=== PATIENT | male | born 1945 | race Caucasian/White ===

== ENCOUNTER 2019-03-16 07:33 | Inpatient (IN) | payer OTHER ==
[2019-03-16 08:07] LABS: BASO % 0.4 % (0-2.0); EOS % 2.1 % (0-4.5); HEMATOCRIT 29.9 % (35.4-49); HEMOGLOBIN 9.8 GM/dL (11.7-16.9); LYMPH % 28.1 % (8-40); MCH 30.4 pg (25.7-33.7); MCHC 32.8 g/dl (32.0-35.9); MEAN CELL VOLUME 92.8 fl (80-96); MEAN PLT VOLUME 7.3 fl (7.5-11.1); MONO % 7.8 % (3.8-10.2); NEUT % 61.6 % (42.8-82.8); PLATELET COUNT 164 K/MM3 (134-434); RBC 3.22 M/mm3 (4.00-5.60); WHITE BLOOD COUNT 6.1 K/mm3 (4.0-10.0)
[2019-03-16 08:24] LABS: INR 1.03 (0.83-1.09); PROTHROMBIN TIME (PATIENT) 12.2 SEC (9.7-13.0)
[2019-03-16 09:01] LABS: ALBUMIN 3.3 g/dl (3.4-5.0); BILIRUBIN,TOTAL 0.2 mg/dL (0.2-1); BLOOD UREA NITROGEN 46.6 mg/dL (7-18); CALCIUM 8.2 mg/dL (8.5-10.1); CREATININE 1.8 mg/dL (0.55-1.3); POTASSIUM 4.6 mmol/L (3.5-5.1); TOT PROT 6.4 g/dl (6.4-8.2)
[2019-03-16] MEDS ORDERED: DEXMEDETOMIDINE HCL 200 MCG/2 ML IVPB ONE (10:58)
[2019-03-16] MEDS ORDERED: ONDANSETRON 4 MG/2 ML VIAL IVPUSH PRN (13:04)
[2019-03-16] MEDS ORDERED: LACTATED RINGERS SOLUTION 1,000 ML IV SCH (13:15)
[2019-03-16] MEDS ORDERED: ACETAMINOPHEN INJECTION 100 ML IVPB ONE (14:28)
[2019-03-16] MEDS: ACETAMINOPHEN 1000 MG/100 ML VIAL (NON FORMULARY) IVPB ONE (14:43)
[2019-03-16] MEDS ORDERED: HYDROmorphone HCl 2 MG/ML VIAL ONE (14:52)
[2019-03-16] MEDS ORDERED: HYDROmorphone HCl 2 MG/ML VIAL IVPUSH ONE (14:54)
[2019-03-16] MEDS ORDERED: HYDROmorphone *PCA* 10MG/50ML DISP.SYRIN ONE (15:52)
[2019-03-16 15:58] LABS: BASO % 0.2 % (0-2.0); EOS % 1.2 % (0-4.5); HEMATOCRIT 28.1 % (35.4-49); HEMOGLOBIN 9.2 GM/dL (11.7-16.9); LYMPH % 32.6 % (8-40); MCH 30.7 pg (25.7-33.7); MCHC 32.6 g/dl (32.0-35.9); MEAN PLT VOLUME 7.5 fl (7.5-11.1); MONO % 5.9 % (3.8-10.2); NEUT % 60.1 % (42.8-82.8); PLATELET COUNT 174 K/MM3 (134-434); RBC 2.99 M/mm3 (4.00-5.60); RDW 15.7 % (11.9-15.9); WHITE BLOOD COUNT 8.6 K/mm3 (4.0-10.0)
[2019-03-16] MEDS ORDERED: HYDROmorphone *PCA* 10MG/50ML DISP.SYRIN PCA SCH (16:15)
--- NOTE | 2019-03-16 16:31 | CONSULT ---
Consultation: REQUESTING PROVIDER: CONSULT REQUEST: We have been asked to medically evaluate this patient for ICU care. HISTORY OF PRESENT ILLNESS: Patient is a 73M with history of s/p pacemaker, on Xarelto, CAD, prostate Ca, b/ l kidney mass, HTN s/p cryoablation of kidney tumors today. Patient had retroperitoneal bleeding demonstrated on CT scan. No reports of hypotension or tachycardia. Patient seen and evaluated in PACU. Patient complaining of pain to his back, no shortness of breath, chest pain or weakness. PACU nursing reports no episodes of hypotension or tachycardia. History is limited as patient is poor historian 2/2 medication. After initial evaluation, patient had repeated episodes of hypotension in PACU after receiving fentanyl and dilaudid. Repeat CBC taken. REVIEW OF SYSTEMS: CONSTITUTIONAL: Absent: fever, chills, diaphoresis, generalized weakness CARDIOVASCULAR: Absent: chest pain, syncope, palpitations RESPIRATORY: Absent: cough, shortness of breath, dyspnea GASTROINTESTINAL: Absent: abdominal pain, abdominal distension, nausea, vomiting, diarrhea GENITOURINARY: Absent: dysuria, frequency, urgency MUSCULOSKELETAL: Absent: myalgia, arthralgia, joint swelling, neck pain Present: chronic lower back pain SKIN: Absent: rash, itching, pallor NEUROLOGIC: Absent: headache, focal weakness or paresthesias, dizziness, seizure, bladder or bowel incontinence PHYSICAL EXAMINATION Vital Signs - 24 hr 03/16/19 03/16/19 03/16/19 07:54 07:56 10:43 Temperature 98.3 F Pulse Rate 53 L 52 L Pulse Rate [ Left Upper Arm] Respiratory 18 11 Rate Respiratory Rate [Left Upper Arm] Blood Pressure 165/71 175/62 H Blood Pressure [Left Upper Arm ] O2 Sat by Pulse 94 L 100 Oximetry (%) O2 Sat by Pulse Oximetry (%) [ Left Upper Arm] 03/16/19 03/16/19 03/16/19 11:01 11:59 12:40 Temperature 97.5 F L Pulse Rate 50 L 50 L Pulse Rate [ 50 L Left Upper Arm] Respiratory 11 14 Rate Respiratory 10 Rate [Left Upper Arm] Blood Pressure 131/66 120/53 L Blood Pressure 141/69 [Left Upper Arm ] O2 Sat by Pulse 100 96 Oximetry (%) O2 Sat by Pulse 100 Oximetry (%) [ Left Upper Arm] 03/16/19 03/16/19 03/16/19 12:55 13:10 13:25 Temperature Pulse Rate 50 L 50 L 50 L Pulse Rate [ Left Upper Arm] Respiratory 18 18 18 Rate Respiratory Rate [Left Upper Arm] Blood Pressure 119/47 L 92/56 L 132/64 Blood Pressure [Left Upper Arm ] O2 Sat by Pulse 96 95 95 Oximetry (%) O2 Sat by Pulse Oximetry (%) [ Left Upper Arm] 03/16/19 03/16/19 03/16/19 13:40 13:55 16:10 Temperature Pulse Rate 50 L 50 L 50 L Pulse Rate [ Left Upper Arm] Respiratory 18 18 16 Rate Respiratory Rate [Left Upper Arm] Blood Pressure 120/66 133/60 154/49 L Blood Pressure [Left Upper Arm ] O2 Sat by Pulse 96 99 Oximetry (%) O2 Sat by Pulse Oximetry (%) [ Left Upper Arm] GENERAL: Awake, alert, arousable HEAD: Normal with no signs of trauma. EYES: Pupils equal, round and reactive to light, extraocular movements intact, sclera anicteric, conjunctiva clear. EARS, NOSE, THROAT: Ears normal, nares patent, oropharynx clear without exudates. Moist mucous membranes. NECK: Normal range of motion, supple without lymphadenopathy, JVD, or masses. LUNGS: Breath sounds equal, clear to auscultation bilaterally. No wheezes, and no crackles. No accessory muscle use. HEART: Regular rate and rhythm, normal S1 and S2 without murmur, rub or gallop. ABDOMEN: Soft, diffusely mildly tender, not distended, normoactive bowel sounds , no guarding, no rebound, no masses. MUSCULOSKELETAL: Normal range of motion at all joints. No bony deformities or tenderness. UPPER EXTREMITIES: 2+ pulses, warm, well-perfused. No cyanosis. No clubbing. Cap refill <2 seconds. No peripheral edema. LOWER EXTREMITIES: 2+ pulses, warm, well-perfused. No calf tenderness. No peripheral edema. NEUROLOGICAL: Cranial nerves II-XII intact. Normal speech. Moving all extremities equally PSYCHIATRIC: Cooperative. Good eye contact. Appropriate mood and affect. SKIN: Warm, dry, normal turgor, no rashes or lesions noted. Laboratory Results - last 24 hr 03/16/19 03/16/19 03/16/19 07:42 07:42 08:25 WBC 6.1 RBC 3.22 L Hgb 9.8 L Hct 29.9 L MCV 92.8 MCH 30.4 MCHC 32.8 RDW 16.0 H Plt Count 164 MPV 7.3 L Absolute Neuts (auto) 3.7 Neutrophils % 61.6 Lymphocytes % 28.1 Monocytes % 7.8 Eosinophils % 2.1 Basophils % 0.4 Nucleated RBC % 0 PT with INR 12.20 INR 1.03 Sodium 142 Potassium 4.6 Chloride 109 H Carbon Dioxide 28 Anion Gap 5 L BUN 46.6 H Creatinine 1.8 H Est GFR (CKD-EPI)AfAm 41.74 Est GFR (CKD-EPI)NonAf 36.01 POC Glucometer Random Glucose 159 H Calcium 8.2 L Total Bilirubin 0.2 AST 20 ALT 17 Alkaline Phosphatase 93 Total Protein 6.4 Albumin 3.3 L 03/16/19 03/16/19 12:45 14:55 WBC 8.6 RBC 2.99 L Hgb 9.2 L Hct 28.1 L MCV 94.0 MCH 30.7 MCHC 32.6 RDW 15.7 Plt Count 174 MPV 7.5 Absolute Neuts (auto) 5.2 Neutrophils % 60.1 Lymphocytes % 32.6 Monocytes % 5.9 Eosinophils % 1.2 Basophils % 0.2 Nucleated RBC % 0 PT with INR INR Sodium Potassium Chloride Carbon Dioxide Anion Gap BUN Creatinine Est GFR (CKD-EPI)AfAm Est GFR (CKD-EPI)NonAf POC Glucometer 120 Random Glucose Calcium Total Bilirubin AST ALT Alkaline Phosphatase Total Protein Albumin Active Medications Generic Name Dose Route Start Last Admin Trade Name Freq PRN Reason Stop Dose Admin Hydromorphone HCl 10 mg 03/16/19 16:15 03/16/19 16:10 Hydromorphone 10 Mg/50 Ml-Ns SERVICES REP 03/17/19 16:14 10 mg SERVICES REP GARRET Administration Protocol Lactated Ringer's 1,000 mls @ 75 mls/hr 03/16/19 13:15 Lactated Ringers Solution IV ASDIR GARRET Ondansetron HCl 4 mg 03/16/19 13:04 Zofran Injection IVPUSH Q6H PRN NAUSEA AND/OR VOMITING ASSESSMENT/PLAN: Patient is 73M with history as stated above s/p cryoablation with retroperitoneal hematoma. Vitals signs initially stable. Hgb 9.9 to 9.2. After initial evaluation, patient became hypotensive, but responded to fluids. #CV Hypotension 2/2 acute blood loss vs medication - Repeat hgb 7.7 down from 9.2. - Will given 2 units prbc, 1 unit ffp - Will continue to monitor vital signs tightly - Repeat CBC after transfusion - Holding Joanne, unsure of why patient is on AC, states it's due to "pacemaker " #Pulm - Patient arousable, protecting airway - Will monitor #FEN/GI -Lytes in AM -NPO Dispo: ICU Visit type - Emergency Visit Emergency Visit: No - New Patient This patient is new to me today: Yes Date on this admission: 03/17/19 - Critical Care Critical Care patient: Yes Total Critical Care Time (in minutes): 35 Critical Care Statement: The care of this patient involved high complexity decision making to prevent further life threatening deterioration of the patient 's condition and/or to evaluate & treat vital organ system(s) failure or risk of failure. ATTENDING PHYSICIAN STATEMENT I saw and evaluated the patient. I reviewed the resident's note and discussed the case with the resident. I agree with the resident's findings and plan as documented. SUBJECTIVE: OBJECTIVE: ASSESSMENT AND PLAN:
--- NOTE | 2019-03-16 16:50 | PN ---
Teaching Attending Note Name of Resident: Erika Croft ATTENDING PHYSICIAN STATEMENT I saw and evaluated the patient. I reviewed the resident's note and discussed the case with the resident. I agree with the resident's findings and plan as documented. SUBJECTIVE:Was asked by IR radiologist; to admit the patient for retroperiteneal bleed s/p cryoablation of left kidney. Patient is a 73yo male with PMHx of CAD, prostate Ca, HTN of left kidney mass s /p cryoablation of kidney tumors today. Patient had retroperitoneal bleeding demonstrated on CT scan. No reports of hypotension or tachycardia. Patient seen and evaluated in PACU. Patient is c/o having back pain, no shortness of breath , chest pain or weakness. History is limited as patient is poor historian. OBJECTIVE: Vital Signs Temperature 97.5 F L 03/16/19 12:40 Pulse Rate 50 L 03/16/19 16:10 Respiratory Rate 16 03/16/19 16:10 Blood Pressure 154/49 L 03/16/19 16:10 O2 Sat by Pulse Oximetry (%) 99 03/16/19 16:10 GENERAL: The patient is awake, alert, and fully oriented, in no acute distress. HEAD: Normal with no signs of trauma. EYES: PERRL, extraocular movements intact, sclera anicteric, conjunctiva clear. ENT: Ears normal, oropharynx clear without exudates, moist mucous membranes. NECK: Trachea midline, full range of motion, supple. LUNGS: Breath sounds equal, clear to auscultation bilaterally, no wheezes, no crackles, no accessory muscle use. HEART: Regular rate and rhythm, S1, S2 without murmur, rub or gallop. ABDOMEN: Soft, mildly distended, left abdominal pain on palpation, BS positive , positive for voluntary guarding. EXTREMITIES: 2+ pulses, warm, well-perfused, no edema. NEUROLOGICAL: Cranial nerves II through XII grossly intact. Normal speech, gait not observed. PSYCH: Normal mood, normal affect. SKIN: Warm, dry, normal turgor, no rashes or lesions noted CBCD WBC 8.6 K/mm3 (4.0-10.0) 03/16/19 14:55 RBC 2.99 M/mm3 (4.00-5.60) L 03/16/19 14:55 Hgb 9.2 GM/dL (11.7-16.9) L 03/16/19 14:55 Hct 28.1 % (35.4-49) L 03/16/19 14:55 MCV 94.0 fl (80-96) 03/16/19 14:55 MCHC 32.6 g/dl (32.0-35.9) 03/16/19 14:55 RDW 15.7 % (11.9-15.9) 03/16/19 14:55 Plt Count 174 K/MM3 (134-434) 03/16/19 14:55 MPV 7.5 fl (7.5-11.1) 03/16/19 14:55 CMP Sodium 142 mmol/L (136-145) 03/16/19 08:25 Potassium 4.6 mmol/L (3.5-5.1) 03/16/19 08:25 Chloride 109 mmol/L (98-107) H 03/16/19 08:25 Carbon Dioxide 28 mmol/L (21-32) 03/16/19 08:25 Anion Gap 5 MMOL/L (8-16) L 03/16/19 08:25 BUN 46.6 mg/dL (7-18) H 03/16/19 08:25 Creatinine 1.8 mg/dL (0.55-1.3) H 03/16/19 08:25 Random Glucose 159 mg/dL (74-106) H 03/16/19 08:25 Calcium 8.2 mg/dL (8.5-10.1) L 03/16/19 08:25 Total Bilirubin 0.2 mg/dL (0.2-1) 03/16/19 08:25 AST 20 U/L (15-37) 03/16/19 08:25 ALT 17 U/L (13-61) 03/16/19 08:25 Alkaline Phosphatase 93 U/L (45-117) 03/16/19 08:25 Total Protein 6.4 g/dl (6.4-8.2) 03/16/19 08:25 Albumin 3.3 g/dl (3.4-5.0) L 03/16/19 08:25 Current Medications Generic Name Dose Route Start Last Admin Trade Name Freq PRN Reason Stop Dose Admin Hydromorphone HCl 10 mg 03/16/19 16:15 03/16/19 16:10 Hydromorphone 10 Mg/50 Ml-Ns MOTOR BOSS 03/17/19 16:14 10 mg MOTOR BOSS GARRET Administration Protocol Lactated Ringer's 1,000 mls @ 75 mls/hr 03/16/19 13:15 Lactated Ringers Solution IV ASDIR GARRET Ondansetron HCl 4 mg 03/16/19 13:04 Zofran Injection IVPUSH Q6H PRN NAUSEA AND/OR VOMITING Home Medications Medication Instructions Recorded Acetaminophen 325 mg PO PRN PRN 03/15/19 Allopurinol [Zyloprim -] 100 mg PO DAILY 03/15/19 Carvedilol 3.125 mg PO BID 03/15/19 Clotrimazole [Lotrimin 1% Cream -] 1 applic TP DAILY 03/15/19 Furosemide 40 mg PO BID 03/15/19 Gabapentin 600 mg PO TID 03/15/19 Glimepiride 4 mg PO DAILY 03/15/19 Insulin (Novolog) [Novolog -] 11 units PO BID 03/15/19 Insulin Detemir [Levemir Flextouch] 44 unit SQ DAILY 03/15/19 Linagliptin [Tradjenta] 5 mg PO DAILY 03/15/19 Lipase/Protease/Amylase [Creon Dr 1 each PO TID 03/15/19 3,000 Units Capsule] Loperamide HCl [Loperamide] 2 mg PO BID 03/15/19 Nystatin [Nyamyc] 100 gm TP DAILY PRN 03/15/19 Rivaroxaban [Xarelto -] 20 mg PO DAILY 03/15/19 Sertraline HCl 150 mg PO DAILY 03/15/19 Simvastatin 5 mg PO DAILY 03/15/19 Tamsulosin HCl [Flomax] 0.8 mg PO DAILY 03/15/19 Laboratory Tests 03/16/19 03/16/19 03/16/19 07:42 07:42 08:25 Hgb 9.8 L RDW 16.0 H PT with INR 12.20 INR 1.03 BUN 46.6 H Creatinine 1.8 H 03/16/19 14:55 Hgb 9.2 L RDW 15.7 PT with INR INR BUN Creatinine CT abdomen and pelvis without contrast: Large solid left lower pole renal mass strongly suspecious for a renal cell carcinoma. right renal cyst, no evidence of metastatic disease or acute pathology within the abdomen or pelvis. ASSESSMENT AND PLAN: Patient is a 73yo male with PMHx of CAD, prostate Ca, b/l kidney mass, HTN, and DM, s/p cryoablation and renal biopsy of L kidney mass, suspicious of tumor (RCC) # POD#0 , Retropereatineal Bleed s/p cryoablation of left kidney due to a kidney mass. type and screen for 2 units , transfuse if hgb drops below 8.0. FFP , CT of abdomen to r/o bleed. Discussed with . # ARF: nephro consult appreciated,IVF. # Hx of PPM : patient is pacing on the monitor. # Hx of CAD/Prostate Ca # Hx of T2DM on ss with coverage # Hx of HtN: hypotension now admit to ICU and monitor closely DVT Px: SCds CC: time of 35m
--- NOTE | 2019-03-16 18:42 | HP ---
CHIEF COMPLAINT: post-op observation for retroperitoneal bleed Surgeon: Dr. Escamilla HISTORY OF PRESENT ILLNESS: Patient is a 73M with history of CAD, prostate Ca, b/l kidney mass, HTN, and DM , s/p cryoablation and renal biopsy of L kidney mass, suspicious of tumor (RCC?) . Post-operatively CT scan demonstrated retroperitoneal bleed. Patient had modest drop in CBC from 9.8>9.2. At the time of admission to the medicine team there were no reports of hypotension or tachycardia. Patient seen and evaluated in PACU. Patient complaining of diffuse pain in his back/ abdomen, no shortness of breath, chest pain or weakness. History is limited as patient is unable to communicate well while in pain. . PAST MEDICAL HISTORY: AD, prostate Ca, b/l kidney mass, HTN, and DM, PAST SURGICAL HISTORY: pacemaker, L kidney biopsy Allergies No Known Allergies Allergy (Verified 03/16/19 07:54) HOME MEDICATIONS: Home Medications Medication Instructions Recorded Acetaminophen 325 mg PO PRN PRN 03/15/19 Allopurinol [Zyloprim -] 100 mg PO DAILY 03/15/19 Carvedilol 3.125 mg PO BID 03/15/19 Clotrimazole [Lotrimin 1% Cream -] 1 applic TP DAILY 03/15/19 Furosemide 40 mg PO BID 03/15/19 Gabapentin 600 mg PO TID 03/15/19 Glimepiride 4 mg PO DAILY 03/15/19 Insulin (Novolog) [Novolog -] 11 units PO BID 03/15/19 Insulin Detemir [Levemir Flextouch] 44 unit SQ DAILY 03/15/19 Linagliptin [Tradjenta] 5 mg PO DAILY 03/15/19 Lipase/Protease/Amylase [Creon Dr 1 each PO TID 03/15/19 3,000 Units Capsule] Loperamide HCl [Loperamide] 2 mg PO BID 03/15/19 Nystatin [Nyamyc] 100 gm TP DAILY PRN 03/15/19 Rivaroxaban [Xarelto -] 20 mg PO DAILY 03/15/19 Sertraline HCl 150 mg PO DAILY 03/15/19 Simvastatin 5 mg PO DAILY 03/15/19 Tamsulosin HCl [Flomax] 0.8 mg PO DAILY 03/15/19 REVIEW OF SYSTEMS CONSTITUTIONAL: Absent: fever, chills, diaphoresis, generalized weakness, malaise, loss of appetite, weight change HEENT: Absent: rhinorrhea, nasal congestion, throat pain, throat swelling, difficulty swallowing, mouth swelling, ear pain, eye pain, visual changes CARDIOVASCULAR: Absent: chest pain, syncope, palpitations, irregular heart rate, lightheadedness , peripheral edema RESPIRATORY: Absent: cough, shortness of breath, dyspnea with exertion, orthopnea, wheezing, stridor, hemoptysis GASTROINTESTINAL: abdominal pain Absent: , abdominal distension, nausea, vomiting, diarrhea, constipation, melena , hematochezia GENITOURINARY: Absent: dysuria, frequency, urgency, hesitancy, hematuria, flank pain, genital pain MUSCULOSKELETAL: Absent: myalgia, arthralgia, joint swelling, back pain, neck pain SKIN: Absent: rash, itching, pallor HEMATOLOGIC/IMMUNOLOGIC: Absent: easy bleeding, easy bruising, lymphadenopathy, frequent infections ENDOCRINE: Absent: unexplained weight gain, unexplained weight loss, heat intolerance, cold intolerance NEUROLOGIC: Absent: headache, focal weakness or paresthesias, dizziness, unsteady gait, seizure, mental status changes, bladder or bowel incontinence PSYCHIATRIC: Absent: anxiety, depression, suicidal or homicidal ideation, hallucinations. PHYSICAL EXAMINATION Vital Signs - 24 hr 03/16/19 03/16/19 03/16/19 07:54 07:56 10:43 Temperature 98.3 F Pulse Rate 53 L 52 L Pulse Rate [ Left Upper Arm] Respiratory 18 11 Rate Respiratory Rate [Left Upper Arm] Blood Pressure 165/71 175/62 H Blood Pressure [Left Upper Arm ] O2 Sat by Pulse 94 L 100 Oximetry (%) O2 Sat by Pulse Oximetry (%) [ Left Upper Arm] 03/16/19 03/16/19 03/16/19 11:01 11:59 12:40 Temperature 97.5 F L Pulse Rate 50 L 50 L Pulse Rate [ 50 L Left Upper Arm] Respiratory 11 14 Rate Respiratory 10 Rate [Left Upper Arm] Blood Pressure 131/66 120/53 L Blood Pressure 141/69 [Left Upper Arm ] O2 Sat by Pulse 100 96 Oximetry (%) O2 Sat by Pulse 100 Oximetry (%) [ Left Upper Arm] 03/16/19 03/16/19 03/16/19 12:55 13:10 13:25 Temperature Pulse Rate 50 L 50 L 50 L Pulse Rate [ Left Upper Arm] Respiratory 18 18 18 Rate Respiratory Rate [Left Upper Arm] Blood Pressure 119/47 L 92/56 L 132/64 Blood Pressure [Left Upper Arm ] O2 Sat by Pulse 96 95 95 Oximetry (%) O2 Sat by Pulse Oximetry (%) [ Left Upper Arm] 03/16/19 03/16/19 03/16/19 13:40 13:55 14:10 Temperature Pulse Rate 50 L 50 L 50 L Pulse Rate [ Left Upper Arm] Respiratory 18 18 16 Rate Respiratory Rate [Left Upper Arm] Blood Pressure 120/66 133/60 142/99 Blood Pressure [Left Upper Arm ] O2 Sat by Pulse 96 98 Oximetry (%) O2 Sat by Pulse Oximetry (%) [ Left Upper Arm] 03/16/19 03/16/19 03/16/19 14:25 14:40 14:55 Temperature Pulse Rate 50 L 50 L 50 L Pulse Rate [ Left Upper Arm] Respiratory 18 16 16 Rate Respiratory Rate [Left Upper Arm] Blood Pressure 163/68 177/66 H 183/79 H Blood Pressure [Left Upper Arm ] O2 Sat by Pulse 98 98 99 Oximetry (%) O2 Sat by Pulse Oximetry (%) [ Left Upper Arm] 03/16/19 03/16/19 03/16/19 15:10 15:25 15:40 Temperature Pulse Rate 50 L 50 L 51 L Pulse Rate [ Left Upper Arm] Respiratory 18 16 16 Rate Respiratory Rate [Left Upper Arm] Blood Pressure 131/64 178/67 H 166/107 H Blood Pressure [Left Upper Arm ] O2 Sat by Pulse 99 99 99 Oximetry (%) O2 Sat by Pulse Oximetry (%) [ Left Upper Arm] 03/16/19 03/16/19 03/16/19 15:55 16:10 16:25 Temperature Pulse Rate 50 L 50 L 51 L Pulse Rate [ Left Upper Arm] Respiratory 18 15 16 Rate Respiratory Rate [Left Upper Arm] Blood Pressure 154/49 L 163/35 L 158/82 Blood Pressure [Left Upper Arm ] O2 Sat by Pulse 99 98 99 Oximetry (%) O2 Sat by Pulse Oximetry (%) [ Left Upper Arm] 03/16/19 03/16/19 03/16/19 16:40 16:55 17:10 Temperature Pulse Rate 50 L 52 L 54 L Pulse Rate [ Left Upper Arm] Respiratory 18 16 18 Rate Respiratory Rate [Left Upper Arm] Blood Pressure 158/82 138/53 L 133/62 Blood Pressure [Left Upper Arm ] O2 Sat by Pulse 99 99 99 Oximetry (%) O2 Sat by Pulse Oximetry (%) [ Left Upper Arm] 03/16/19 03/16/19 03/16/19 17:25 17:40 17:55 Temperature Pulse Rate 53 L 51 L 52 L Pulse Rate [ Left Upper Arm] Respiratory 16 18 16 Rate Respiratory Rate [Left Upper Arm] Blood Pressure 111/71 106/55 L 93/62 Blood Pressure [Left Upper Arm ] O2 Sat by Pulse 99 99 99 Oximetry (%) O2 Sat by Pulse Oximetry (%) [ Left Upper Arm] GENERAL: Awake, in pain, opens eyes, responds to questioning with "i'm in pain" HEAD: Normal with no signs of trauma. EYES: Pupils equal, round and reactive to light, extraocular movements intact, sclera anicteric, conjunctiva clear. No lid lag. EARS, NOSE, THROAT: Ears normal, nares patent, oropharynx clear without exudates. Moist mucous membranes. NECK: Normal range of motion, supple without lymphadenopathy LUNGS: Breath sounds equal, clear to auscultation bilaterally on frontal lung nagy, did not roll patient due to pain. No accessory muscle use. HEART: Regular rate and rhythm, normal S1 and S2. ABDOMEN: Soft, diffusely tender L>R hypoactive bowel sounds UPPER EXTREMITIES: 2+ pulses, warm, well-perfused. No cyanosis. No clubbing. No peripheral edema. LOWER EXTREMITIES: 2+ pulses, warm, well-perfused. No calf tenderness. No peripheral edema. NEUROLOGICAL: unable to assess SKIN: Warm, dry, normal turgor Laboratory Results - last 24 hr 03/16/19 03/16/19 03/16/19 07:42 07:42 08:25 WBC 6.1 RBC 3.22 L Hgb 9.8 L Hct 29.9 L MCV 92.8 MCH 30.4 MCHC 32.8 RDW 16.0 H Plt Count 164 MPV 7.3 L Absolute Neuts (auto) 3.7 Neutrophils % 61.6 Lymphocytes % 28.1 Monocytes % 7.8 Eosinophils % 2.1 Basophils % 0.4 Nucleated RBC % 0 PT with INR 12.20 INR 1.03 Sodium 142 Potassium 4.6 Chloride 109 H Carbon Dioxide 28 Anion Gap 5 L BUN 46.6 H Creatinine 1.8 H Est GFR (CKD-EPI)AfAm 41.74 Est GFR (CKD-EPI)NonAf 36.01 POC Glucometer Random Glucose 159 H Calcium 8.2 L Total Bilirubin 0.2 AST 20 ALT 17 Alkaline Phosphatase 93 Total Protein 6.4 Albumin 3.3 L 03/16/19 03/16/19 12:45 14:55 WBC 8.6 RBC 2.99 L Hgb 9.2 L Hct 28.1 L MCV 94.0 MCH 30.7 MCHC 32.6 RDW 15.7 Plt Count 174 MPV 7.5 Absolute Neuts (auto) 5.2 Neutrophils % 60.1 Lymphocytes % 32.6 Monocytes % 5.9 Eosinophils % 1.2 Basophils % 0.2 Nucleated RBC % 0 PT with INR INR Sodium Potassium Chloride Carbon Dioxide Anion Gap BUN Creatinine Est GFR (CKD-EPI)AfAm Est GFR (CKD-EPI)NonAf POC Glucometer 120 Random Glucose Calcium Total Bilirubin AST ALT Alkaline Phosphatase Total Protein Albumin Current Medications ASSESSMENT/PLAN: Patient is a 73M with history of CAD, prostate Ca, b/l kidney mass, HTN, and DM , s/p cryoablation and renal biopsy of L kidney mass, suspicious of tumor (RCC?) . # Retroperitoneal Bleed - CBC q6h - type and screen - 2unit pRBCs on hold - Transfuses for Hgb <8 - FFP if actively bleeding and hypotensive - maintain MAP > 65 - [employer] pump for pain - continuous monitoring- ICU - BPs q30min - IVF LR 125cc/hr - IV NS blouses PRN for hypotension - post-operative care per surgical team #DM - BGM ACHS - ISS #FEN - LR 125cc/hr - replete prn - NPO - Dispo: admit to ICU for monitoring because tenuous hemodynamic status. Visit type - Emergency Visit Emergency Visit: No - New Patient This patient is new to me today: Yes Date on this admission: 03/16/19 - Critical Care Critical Care patient: No ATTENDING PHYSICIAN STATEMENT I saw and evaluated the patient. I reviewed the resident's note and discussed the case with the resident. I agree with the resident's findings and plan as documented. SUBJECTIVE: OBJECTIVE: ASSESSMENT AND PLAN:
[2019-03-16] MEDS ORDERED: FUROSEMIDE 40 MG/4 ML INJECTABLE VIAL IVPUSH ONE (19:14)
[2019-03-16 19:16] LABS: BASO % 0.2 % (0-2.0); EOS % 0.1 % (0-4.5); HEMATOCRIT 24.9 % (35.4-49); HEMOGLOBIN 7.7 GM/dL (11.7-16.9); LYMPH % 9.8 % (8-40); MCH 29.3 pg (25.7-33.7); MEAN CELL VOLUME 94.5 fl (80-96); MEAN PLT VOLUME 7.6 fl (7.5-11.1); NEUT % 83.9 % (42.8-82.8); PLATELET COUNT 208 K/MM3 (134-434); RBC 2.63 M/mm3 (4.00-5.60); RDW 15.7 % (11.9-15.9); WHITE BLOOD COUNT 14.8 K/mm3 (4.0-10.0)
[2019-03-16] MEDS ORDERED: LACTATED RINGERS SOLUTION 1,000 ML/1,000 ML INFUS.BAG IV SCH (19:45)
[2019-03-16 19:53] LABS: INR 1.13 (0.83-1.09); PROTHROMBIN TIME (PATIENT) 13.4 SEC (9.7-13.0)
[2019-03-16 20:18] LABS: ALBUMIN 2.9 g/dl (3.4-5.0); BILIRUBIN,TOTAL 0.3 mg/dL (0.2-1); BLOOD UREA NITROGEN 46.9 mg/dL (7-18); CALCIUM 7.8 mg/dL (8.5-10.1); CREATININE 2.1 mg/dL (0.55-1.3); POTASSIUM 5.2 mmol/L (3.5-5.1); TOT PROT 5.2 g/dl (6.4-8.2)
[2019-03-16] MEDS ORDERED: INSULIN SLIDING SCALE (NOVOLOG) 1 VIAL SQ SCH (22:00)
[2019-03-16] MEDS: INSULIN SLIDING SCALE (NOVOLOG) 1 VIAL SQ SCH (23:06)
[2019-03-17] MEDS ORDERED: FUROSEMIDE 40 MG/4 ML INJECTABLE VIAL ONE (02:51)
[2019-03-17 05:56] LABS: BASO % 0.1 % (0-2.0); HEMATOCRIT 28.6 % (35.4-49); HEMOGLOBIN 9.5 GM/dL (11.7-16.9); LYMPH % 7.3 % (8-40); MCH 30.7 pg (25.7-33.7); MCHC 33.3 g/dl (32.0-35.9); MEAN CELL VOLUME 92.2 fl (80-96); MEAN PLT VOLUME 7.8 fl (7.5-11.1); MONO % 5.1 % (3.8-10.2); NEUT % 87.5 % (42.8-82.8); PLATELET COUNT 165 K/MM3 (134-434); RDW 15.6 % (11.9-15.9); WHITE BLOOD COUNT 11.9 K/mm3 (4.0-10.0)
[2019-03-17 06:35] LABS: ALBUMIN 3.3 g/dl (3.4-5.0); BILIRUBIN,TOTAL 0.5 mg/dL (0.2-1); BLOOD UREA NITROGEN 55.5 mg/dL (7-18); CREATININE 2.5 mg/dL (0.55-1.3); MAGNESIUM 2.3 mg/dL (1.8-2.4); PHOSPHOROUS 6.7 mg/dL (2.5-4.9); POTASSIUM 5.9 mmol/L (3.5-5.1); TOT PROT 6.1 g/dl (6.4-8.2)
[2019-03-17] MEDS ORDERED: ALBUTEROL SO4 0.083% IH SOL 2.5 MG/3 ML VIAL.NEB. NEB ONE (06:54)
[2019-03-17] MEDS ORDERED: CALCIUM GLUCONATE 10% - 1,000 MG/10 ML VIAL IVPUSH ONE (07:20)
[2019-03-17] MEDS ORDERED: DEXTROSE 50%-WATER - 25 GM/50 ML VIAL IVPUSH ONE (07:20)
[2019-03-17] MEDS ORDERED: INSULIN REGULAR HUMAN 100 UNITS/ML *VIAL SQ ONE (07:20)
[2019-03-17] MEDS ORDERED: DEXTROSE 50%-WATER 25 GM/50 ML DISP.SYRIN ONE (08:51)
[2019-03-17] MEDS: INSULIN SLIDING SCALE (NOVOLOG) 1 VIAL SQ SCH ×5 (08:54→21:08)
[2019-03-17] MEDS: ACETAMINOPHEN 1000 MG/100 ML VIAL (NON FORMULARY) IVPB ONE (09:18)
[2019-03-17 10:50] LABS: BLOOD UREA NITROGEN 60.1 mg/dL (7-18); CALCIUM 8.2 mg/dL (8.5-10.1); CREATININE 2.8 mg/dL (0.55-1.3); POTASSIUM 5.7 mmol/L (3.5-5.1)
--- NOTE | 2019-03-17 11:02 | PN ---
<Abdi Gonzalez - Last Filed: 03/17/19 11:03> Physical Exam: SUBJECTIVE: Patient seen and examined OBJECTIVE: Vital Signs Period Temp Pulse Resp BP Sys/Valenzuela Pulse Ox Last 24 Hr 97.4 F-97.9 F 50-75 11-18 80-183/32-107 95-100 GENERAL: The patient is awake, alert, and fully oriented, in no acute distress. HEAD: Normal with no signs of trauma. EYES: PERRL, extraocular movements intact, sclera anicteric, conjunctiva clear. No ptosis. ENT: Ears normal, nares patent, oropharynx clear without exudates, moist mucous membranes. NECK: Trachea midline, full range of motion, supple. LUNGS: Breath sounds equal, clear to auscultation bilaterally, no wheezes, no crackles, no accessory muscle use. HEART: Regular rate and rhythm, S1, S2 without murmur, rub or gallop. ABDOMEN: Soft, nontender, nondistended, normoactive bowel sounds, no guarding, no rebound, no hepatosplenomegaly, no masses. EXTREMITIES: 2+ pulses, warm, well-perfused, no edema. NEUROLOGICAL: Cranial nerves II through XII grossly intact. Normal speech, gait not observed. PSYCH: Normal mood, normal affect. SKIN: Warm, dry, normal turgor, no rashes or lesions noted Laboratory Results - last 24 hr 03/16/19 03/16/19 03/16/19 12:45 14:55 19:00 WBC 8.6 RBC 2.99 L Hgb 9.2 L Hct 28.1 L MCV 94.0 MCH 30.7 MCHC 32.6 RDW 15.7 Plt Count 174 MPV 7.5 Absolute Neuts (auto) 5.2 Neutrophils % 60.1 Lymphocytes % 32.6 Monocytes % 5.9 Eosinophils % 1.2 Basophils % 0.2 Nucleated RBC % 0 PT with INR INR Sodium Potassium Chloride Carbon Dioxide Anion Gap BUN Creatinine Est GFR (CKD-EPI)AfAm Est GFR (CKD-EPI)NonAf POC Glucometer 120 Random Glucose Calcium Phosphorus Magnesium Total Bilirubin AST ALT Alkaline Phosphatase Total Protein Albumin Blood Type O POSITIVE Antibody Screen Negative Crossmatch See Detail 03/16/19 03/16/19 03/16/19 19:00 19:10 19:10 WBC 14.8 H RBC 2.63 L Hgb 7.7 L Hct 24.9 L MCV 94.5 MCH 29.3 MCHC 31.0 L RDW 15.7 Plt Count 208 MPV 7.6 Absolute Neuts (auto) 12.4 H Neutrophils % 83.9 H D Lymphocytes % 9.8 D Monocytes % 6.0 Eosinophils % 0.1 D Basophils % 0.2 Nucleated RBC % 0 PT with INR 13.40 H INR 1.13 H Sodium 145 Potassium 5.2 H Chloride 111 H Carbon Dioxide 28 Anion Gap 6 L BUN 46.9 H Creatinine 2.1 H Est GFR (CKD-EPI)AfAm 34.64 Est GFR (CKD-EPI)NonAf 29.89 POC Glucometer Random Glucose 179 H Calcium 7.8 L Phosphorus Magnesium Total Bilirubin 0.3 AST 38 H ALT 18 Alkaline Phosphatase 77 Total Protein 5.2 L Albumin 2.9 L Blood Type Antibody Screen Crossmatch 03/16/19 03/17/19 03/17/19 22:45 05:05 05:05 WBC 11.9 H RBC 3.10 L Hgb 9.5 L Hct 28.6 L MCV 92.2 MCH 30.7 MCHC 33.3 RDW 15.6 Plt Count 165 D MPV 7.8 Absolute Neuts (auto) 10.4 H Neutrophils % 87.5 H Lymphocytes % 7.3 L D Monocytes % 5.1 Eosinophils % 0.0 D Basophils % 0.1 Nucleated RBC % 0 PT with INR INR Sodium 140 Potassium 5.9 H Chloride 108 H Carbon Dioxide 26 Anion Gap 6 L BUN 55.5 H Creatinine 2.5 H Est GFR (CKD-EPI)AfAm 28.06 Est GFR (CKD-EPI)NonAf 24.21 POC Glucometer 210 Random Glucose 211 H Calcium 8.0 L Phosphorus 6.7 H Magnesium 2.3 Total Bilirubin 0.5 AST 44 H ALT 19 Alkaline Phosphatase 83 Total Protein 6.1 L Albumin 3.3 L Blood Type Antibody Screen Crossmatch 03/17/19 03/17/19 05:20 10:10 WBC RBC Hgb Hct MCV MCH MCHC RDW Plt Count MPV Absolute Neuts (auto) Neutrophils % Lymphocytes % Monocytes % Eosinophils % Basophils % Nucleated RBC % PT with INR INR Sodium 142 Potassium 5.7 H Chloride 109 H Carbon Dioxide 26 Anion Gap 7 L BUN 60.1 H Creatinine 2.8 H Est GFR (CKD-EPI)AfAm 24.47 Est GFR (CKD-EPI)NonAf 21.11 POC Glucometer 194 Random Glucose 273 H Calcium 8.2 L Phosphorus Magnesium Total Bilirubin AST ALT Alkaline Phosphatase Total Protein Albumin Blood Type Antibody Screen Crossmatch Active Medications Generic Name Dose Route Start Last Admin Trade Name Freq PRN Reason Stop Dose Admin Hydromorphone HCl 10 mg 03/16/19 16:15 03/16/19 16:10 Hydromorphone 10 Mg/50 Ml-Ns SALES DONOR RECRUITMENT REPRESENTATIVE 03/17/19 16:14 10 mg SALES DONOR RECRUITMENT REPRESENTATIVE GARRET Administration Protocol Lactated Ringer's 1,000 ml in 1,000 mls @ 125 mls/hr 03/16/19 19:45 03/17/19 08:58 Lactated Ringers Solution IV 125 mls/hr ASDIR GARRET Administration Insulin Aspart 1 vial 03/16/19 22:00 03/17/19 08:54 Novolog Vial Sliding Scale - SQ 2 units ACHS GARRET Administration Protocol Ondansetron HCl 4 mg 03/16/19 13:04 Zofran Injection IVPUSH Q6H PRN NAUSEA AND/OR VOMITING ASSESSMENT/PLAN: ATTENDING PHYSICIAN STATEMENT I saw and evaluated the patient. I reviewed the resident's note and discussed the case with the resident. I agree with the resident's findings and plan as documented. SUBJECTIVE: OBJECTIVE: ASSESSMENT AND PLAN: <Dago Jimenez - Last Filed: 03/17/19 12:07> Physical Exam: SUBJECTIVE: Patient seen and examined OBJECTIVE: Vital Signs Period Temp Pulse Resp BP Sys/Valenzuela Pulse Ox Last 24 Hr 97.4 F-97.9 F 50-75 11-18 80-183/32-107 95-100 GENERAL: The patient is awake, alert, and fully oriented, in no acute distress. HEAD: Normal with no signs of trauma. EYES: PERRL, extraocular movements intact, sclera anicteric, conjunctiva clear. No ptosis. ENT: Ears normal, nares patent, oropharynx clear without exudates, moist mucous membranes. NECK: Trachea midline, full range of motion, supple. LUNGS: Breath sounds equal, clear to auscultation bilaterally, no wheezes, no crackles, no accessory muscle use. HEART: Regular rate and rhythm, S1, S2 without murmur, rub or gallop. ABDOMEN: Soft, nontender, nondistended, normoactive bowel sounds, no guarding, no rebound, no hepatosplenomegaly, no masses. EXTREMITIES: 2+ pulses, warm, well-perfused, no edema. NEUROLOGICAL: Cranial nerves II through XII grossly intact. Normal speech, gait not observed. PSYCH: Normal mood, normal affect. SKIN: Warm, dry, normal turgor, no rashes or lesions noted Laboratory Results - last 24 hr 03/16/19 03/16/19 03/16/19 12:45 14:55 19:00 WBC 8.6 RBC 2.99 L Hgb 9.2 L Hct 28.1 L MCV 94.0 MCH 30.7 MCHC 32.6 RDW 15.7 Plt Count 174 MPV 7.5 Absolute Neuts (auto) 5.2 Neutrophils % 60.1 Lymphocytes % 32.6 Monocytes % 5.9 Eosinophils % 1.2 Basophils % 0.2 Nucleated RBC % 0 PT with INR INR Sodium Potassium Chloride Carbon Dioxide Anion Gap BUN Creatinine Est GFR (CKD-EPI)AfAm Est GFR (CKD-EPI)NonAf POC Glucometer 120 Random Glucose Calcium Phosphorus Magnesium Total Bilirubin AST ALT Alkaline Phosphatase Total Protein Albumin Blood Type O POSITIVE Antibody Screen Negative Crossmatch See Detail 03/16/19 03/16/19 03/16/19 19:00 19:10 19:10 WBC 14.8 H RBC 2.63 L Hgb 7.7 L Hct 24.9 L MCV 94.5 MCH 29.3 MCHC 31.0 L RDW 15.7 Plt Count 208 MPV 7.6 Absolute Neuts (auto) 12.4 H Neutrophils % 83.9 H D Lymphocytes % 9.8 D Monocytes % 6.0 Eosinophils % 0.1 D Basophils % 0.2 Nucleated RBC % 0 PT with INR 13.40 H INR 1.13 H Sodium 145 Potassium 5.2 H Chloride 111 H Carbon Dioxide 28 Anion Gap 6 L BUN 46.9 H Creatinine 2.1 H Est GFR (CKD-EPI)AfAm 34.64 Est GFR (CKD-EPI)NonAf 29.89 POC Glucometer Random Glucose 179 H Calcium 7.8 L Phosphorus Magnesium Total Bilirubin 0.3 AST 38 H ALT 18 Alkaline Phosphatase 77 Total Protein 5.2 L Albumin 2.9 L Blood Type Antibody Screen Crossmatch 03/16/19 03/17/19 03/17/19 22:45 05:05 05:05 WBC 11.9 H RBC 3.10 L Hgb 9.5 L Hct 28.6 L MCV 92.2 MCH 30.7 MCHC 33.3 RDW 15.6 Plt Count 165 D MPV 7.8 Absolute Neuts (auto) 10.4 H Neutrophils % 87.5 H Lymphocytes % 7.3 L D Monocytes % 5.1 Eosinophils % 0.0 D Basophils % 0.1 Nucleated RBC % 0 PT with INR INR Sodium 140 Potassium 5.9 H Chloride 108 H Carbon Dioxide 26 Anion Gap 6 L BUN 55.5 H Creatinine 2.5 H Est GFR (CKD-EPI)AfAm 28.06 Est GFR (CKD-EPI)NonAf 24.21 POC Glucometer 210 Random Glucose 211 H Calcium 8.0 L Phosphorus 6.7 H Magnesium 2.3 Total Bilirubin 0.5 AST 44 H ALT 19 Alkaline Phosphatase 83 Total Protein 6.1 L Albumin 3.3 L Blood Type Antibody Screen Crossmatch 03/17/19 03/17/19 05:20 10:10 WBC RBC Hgb Hct MCV MCH MCHC RDW Plt Count MPV Absolute Neuts (auto) Neutrophils % Lymphocytes % Monocytes % Eosinophils % Basophils % Nucleated RBC % PT with INR INR Sodium 142 Potassium 5.7 H Chloride 109 H Carbon Dioxide 26 Anion Gap 7 L BUN 60.1 H Creatinine 2.8 H Est GFR (CKD-EPI)AfAm 24.47 Est GFR (CKD-EPI)NonAf 21.11 POC Glucometer 194 Random Glucose 273 H Calcium 8.2 L Phosphorus Magnesium Total Bilirubin AST ALT Alkaline Phosphatase Total Protein Albumin Blood Type Antibody Screen Crossmatch Active Medications Generic Name Dose Route Start Last Admin Trade Name Gaganq PRN Reason Stop Dose Admin Hydromorphone HCl 10 mg 03/16/19 16:15 03/16/19 16:10 Hydromorphone 10 Mg/50 Ml-Ns SALES DONOR RECRUITMENT REPRESENTATIVE 03/17/19 16:14 10 mg SALES DONOR RECRUITMENT REPRESENTATIVE GARRET Administration Protocol Lactated Ringer's 1,000 ml in 1,000 mls @ 125 mls/hr 03/16/19 19:45 03/17/19 08:58 Lactated Ringers Solution IV 125 mls/hr ASDIR GARRET Administration Insulin Aspart 1 vial 03/16/19 22:00 03/17/19 08:54 Novolog Vial Sliding Scale - SQ 2 units ACHS GARRET Administration Protocol Ondansetron HCl 4 mg 03/16/19 13:04 Zofran Injection IVPUSH Q6H PRN NAUSEA AND/OR VOMITING ASSESSMENT/PLAN:
--- NOTE | 2019-03-17 11:03 | PN ---
Teaching Attending Note Name of Resident: Dago Jimenez ATTENDING PHYSICIAN STATEMENT I saw and evaluated the patient. I reviewed the resident's note and discussed the case with the resident. I agree with the resident's findings and plan as documented. SUBJECTIVE: Patient seen and examined in the ICU. Awake and alert. Uncomfortable due to pain at the biopsy site. H & H improved. Denies CP or SOB. Horvath catheter was unable to be passed. Hypotension resolving. Intake & Output 03/14/19 03/15/19 03/16/19 03/17/19 23:59 23:59 23:59 23:59 Intake Total 1600 Balance 1600 Weight 250 lb 250 lb 266 lb 8.622 oz Last Vital Signs Temp Pulse Resp BP Pulse Ox 97.9 F 75 16 157/78 97 03/17/19 10:00 03/17/19 10:00 03/17/19 10:00 03/17/19 10:00 03/17/19 10:22 Active Medications Hydromorphone HCl (Hydromorphone 10 Mg/50 Ml-Ns) 10 mg RAILROAD ENGINEER RAILROAD ENGINEER [facility]; Protocol Stop: 03/17/19 16:14 Last Admin: 03/16/19 16:10 Dose: 10 mg Lactated Ringer's (Lactated Ringers Solution) 1,000 ml in 1,000 mls @ 125 mls/ hr IV ASDIR [facility] Last Admin: 03/17/19 08:58 Dose: 125 mls/hr Insulin Aspart (Novolog Vial Sliding Scale -) 1 vial SQ ACHS [facility]; Protocol Last Admin: 03/17/19 08:54 Dose: 2 units Ondansetron HCl (Zofran Injection) 4 mg IVPUSH Q6H PRN PRN Reason: NAUSEA AND/OR VOMITING GENERAL: Awake, alert, mildly uncomfortable due to pain HEAD: Normal with no signs of trauma. EYES: Pupils equal, round and reactive to light, extraocular movements intact, sclera anicteric, conjunctiva clear. EARS, NOSE, THROAT: Ears normal, nares patent, oropharynx clear without exudates. Moist mucous membranes. NECK: Normal range of motion, supple without lymphadenopathy, JVD, or masses. LUNGS: Breath sounds equal, clear to auscultation bilaterally. No wheezes, and no crackles. No accessory muscle use. HEART: Regular rate and rhythm, normal S1 and S2 without murmur, rub or gallop. ABDOMEN: Soft, (+) mild tenderness at the biopsy site, no fluid collection, (+) BS, not distended, no guarding, no rebound, no masses. MUSCULOSKELETAL: Normal range of motion at all joints. No bony deformities or tenderness. UPPER EXTREMITIES: 2+ pulses, warm, well-perfused. No cyanosis. No clubbing. Cap refill <2 seconds. No peripheral edema. LOWER EXTREMITIES: 2+ pulses, warm, well-perfused. No calf tenderness. No peripheral edema. NEUROLOGICAL: Non-focal PSYCHIATRIC: Cooperative. Good eye contact. Appropriate mood and affect. SKIN: Warm, dry, normal turgor, no rashes or lesions noted. Laboratory Results - last 24 hr 03/16/19 03/16/19 03/16/19 12:45 14:55 19:00 WBC 8.6 RBC 2.99 L Hgb 9.2 L Hct 28.1 L MCV 94.0 MCH 30.7 MCHC 32.6 RDW 15.7 Plt Count 174 MPV 7.5 Absolute Neuts (auto) 5.2 Neutrophils % 60.1 Lymphocytes % 32.6 Monocytes % 5.9 Eosinophils % 1.2 Basophils % 0.2 Nucleated RBC % 0 PT with INR INR Sodium Potassium Chloride Carbon Dioxide Anion Gap BUN Creatinine Est GFR (CKD-EPI)AfAm Est GFR (CKD-EPI)NonAf POC Glucometer 120 Random Glucose Calcium Phosphorus Magnesium Total Bilirubin AST ALT Alkaline Phosphatase Total Protein Albumin Blood Type O POSITIVE Antibody Screen Negative Crossmatch See Detail 03/16/19 03/16/19 03/16/19 19:00 19:10 19:10 WBC 14.8 H RBC 2.63 L Hgb 7.7 L Hct 24.9 L MCV 94.5 MCH 29.3 MCHC 31.0 L RDW 15.7 Plt Count 208 MPV 7.6 Absolute Neuts (auto) 12.4 H Neutrophils % 83.9 H D Lymphocytes % 9.8 D Monocytes % 6.0 Eosinophils % 0.1 D Basophils % 0.2 Nucleated RBC % 0 PT with INR 13.40 H INR 1.13 H Sodium 145 Potassium 5.2 H Chloride 111 H Carbon Dioxide 28 Anion Gap 6 L BUN 46.9 H Creatinine 2.1 H Est GFR (CKD-EPI)AfAm 34.64 Est GFR (CKD-EPI)NonAf 29.89 POC Glucometer Random Glucose 179 H Calcium 7.8 L Phosphorus Magnesium Total Bilirubin 0.3 AST 38 H ALT 18 Alkaline Phosphatase 77 Total Protein 5.2 L Albumin 2.9 L Blood Type Antibody Screen Crossmatch 03/16/19 03/17/19 03/17/19 22:45 05:05 05:05 WBC 11.9 H RBC 3.10 L Hgb 9.5 L Hct 28.6 L MCV 92.2 MCH 30.7 MCHC 33.3 RDW 15.6 Plt Count 165 D MPV 7.8 Absolute Neuts (auto) 10.4 H Neutrophils % 87.5 H Lymphocytes % 7.3 L D Monocytes % 5.1 Eosinophils % 0.0 D Basophils % 0.1 Nucleated RBC % 0 PT with INR INR Sodium 140 Potassium 5.9 H Chloride 108 H Carbon Dioxide 26 Anion Gap 6 L BUN 55.5 H Creatinine 2.5 H Est GFR (CKD-EPI)AfAm 28.06 Est GFR (CKD-EPI)NonAf 24.21 POC Glucometer 210 Random Glucose 211 H Calcium 8.0 L Phosphorus 6.7 H Magnesium 2.3 Total Bilirubin 0.5 AST 44 H ALT 19 Alkaline Phosphatase 83 Total Protein 6.1 L Albumin 3.3 L Blood Type Antibody Screen Crossmatch 03/17/19 03/17/19 05:20 10:10 WBC RBC Hgb Hct MCV MCH MCHC RDW Plt Count MPV Absolute Neuts (auto) Neutrophils % Lymphocytes % Monocytes % Eosinophils % Basophils % Nucleated RBC % PT with INR INR Sodium 142 Potassium 5.7 H Chloride 109 H Carbon Dioxide 26 Anion Gap 7 L BUN 60.1 H Creatinine 2.8 H Est GFR (CKD-EPI)AfAm 24.47 Est GFR (CKD-EPI)NonAf 21.11 POC Glucometer 194 Random Glucose 273 H Calcium 8.2 L Phosphorus Magnesium Total Bilirubin AST ALT Alkaline Phosphatase Total Protein Albumin Blood Type Antibody Screen Crossmatch ASSESSMENT/PLAN: POD #1: Cryoablation & Renal biopsy Retroperitoneal hematoma Resolving hypotension PPM CAD Prostate CA Bilateral kidney masses HTN Monitor H & H Transfusion threshold: 8 gm/dL O2 as needed Xarelto on hold: need to get more information about the indication for DOAC PO as tolerated Mechanical VTE prophylaxis Glycemic control ICU monitoring for tenuous respiratory status Dr Gonzalez Critical care time spent in reviewing chart, evaluating patient and formulating plan - 36 minutes.
[2019-03-17 12:17] LABS: BASO % 0.2 % (0-2.0); HEMOGLOBIN 8.7 GM/dL (11.7-16.9); LYMPH % 8.3 % (8-40); MCH 30.4 pg (25.7-33.7); MCHC 33.5 g/dl (32.0-35.9); MEAN CELL VOLUME 90.9 fl (80-96); MEAN PLT VOLUME 7.1 fl (7.5-11.1); MONO % 6.9 % (3.8-10.2); NEUT % 84.6 % (42.8-82.8); PLATELET COUNT 160 K/MM3 (134-434); RBC 2.86 M/mm3 (4.00-5.60); WHITE BLOOD COUNT 11.5 K/mm3 (4.0-10.0)
[2019-03-17] MEDS ORDERED: SODIUM ZIRCONIUM CYCLOSILICATE (LOKELMA) 5 GM PACKET PO ONE ×2 (14:50→15:15)
--- NOTE | 2019-03-17 15:06 | PN ---
Progress Note (short form) - Note Progress Note: S/P cryoablesion of renal tumor under TIVA uneventful.P71,BP 145/64 and Spo2 93 on O2 3l.Patient stable and c/o pain score of 6-7/10 on Dilaudid PRODUCT LISTER.Directed the patient to push batch dumper button or he will not get medication.Will continue batch dumper today and will f/u.
--- NOTE | 2019-03-17 15:12 | CON.CARD ---
Consult Consult Specialty:: cardio - History of Present Illness History of Present Illness: 73 male here for cryoablation of renal mass--c/b retroperitoneal hematoma. on xarelto at home, which is being held here. being monitored in ICU. last night hypotensive to 80s systolic at times--currently bp has stabilized. initial creatinine 1.8, no prior baseline values available. he has had progressively rising creatinine over past 24 hours received PRBCs, hgb is modestly improved at present (paulette 7s-->now 8s) pt with slight dysarthria (lisp) which he and dtrs say is new. mild droop of R lips corner--dtr says is new. he reports vague morrison color in vision (both eyes) and ? slight loss of periph vision but says he cannot attest if this is new b/c only noticed it when resident began to examine his neuro status. 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 moving all extrem.s without noticeable weakness. PMH: has ICD/PM. known CMP/CHF--no recent exacerbations. had prior cath with no PCI, no prior NV--per pt and dtrs. has had mult prior TIAs. has known afib per pt--on AC. all the above occurred in [place]--[facility]) Prostate CA Bilateral kidney masses HTN DM - Alcohol/Substance Use Hx Alcohol Use: No - Smoking History Smoking history: Never smoked Home Medications - Allergies Allergies/Adverse Reactions: Allergies Allergy/AdvReac Type Severity Reaction Status Date / Time No Known Allergies Allergy Verified 03/16/19 07:54 - Home Medications Home Medications: Ambulatory Orders Acetaminophen 325 mg PO PRN PRN 03/15/19 Allopurinol [Zyloprim -] 100 mg PO DAILY 03/15/19 Carvedilol 3.125 mg PO BID 03/15/19 Clotrimazole [Lotrimin 1% Cream -] 1 applic TP DAILY 03/15/19 Furosemide 40 mg PO BID 03/15/19 Gabapentin 600 mg PO TID 03/15/19 Glimepiride 4 mg PO DAILY 03/15/19 Insulin (Novolog) [Novolog -] 11 units PO BID 03/15/19 Insulin Detemir [Levemir Flextouch] 44 unit SQ DAILY 03/15/19 Linagliptin [Tradjenta] 5 mg PO DAILY 03/15/19 Lipase/Protease/Amylase [Melida Em 3,000 Units Capsule] 1 each PO TID 03/15/19 Loperamide HCl [Loperamide] 2 mg PO BID 03/15/19 Nystatin [Nyamyc] 100 gm TP DAILY PRN 03/15/19 Rivaroxaban [Xarelto -] 20 mg PO DAILY 03/15/19 Sertraline HCl 150 mg PO DAILY 03/15/19 Simvastatin 5 mg PO DAILY 03/15/19 Tamsulosin HCl [Flomax] 0.8 mg PO DAILY 03/15/19 Family Disease History - Family Disease History Family History: Denies (no known cmp) Review of Systems - Review of Systems Constitutional: denies: Chills, Fever Eyes: denies: Eye Pain HENT: denies: Nasal Congestion Neck: denies: Stiffness Cardiovascular: denies: Palpitations Respiratory: denies: Orthopnea, PND Gastrointestinal: denies: Diarrhea, Rectal Bleeding Genitourinary: denies: Burning, Hematuria Musculoskeletal: denies: Muscle Pain Integumentary: denies: Rash Neurological: reports: Change in Speech, Numbness. denies: Seizure, Syncope Endocrine: denies: Excessive Sweating Hematology/Lymphatic: denies: Excessive Bleeding Vital Signs: Vital Signs Temperature 98.8 F 03/17/19 14:00 Pulse Rate 72 03/17/19 14:00 Respiratory Rate 12 03/17/19 14:00 Blood Pressure 145/64 03/17/19 14:00 O2 Sat by Pulse Oximetry (%) 97 03/17/19 10:22 Constitutional: Yes: Well Nourished, No Distress Eyes: No: Sclera Icterus HENT: No: Nasal Congestion Neck: No: Decreased ROM Respiratory: Yes: CTA Bilaterally. No: Accessory Muscle Use, Rales, Wheezes Gastrointestinal: Yes: Normal Bowel Sounds. No: Distention, Hepatomegaly, Palpable Mass, Tenderness Cardiovascular: Yes: Regular Rate and Rhythm JVD: No Carotid Bruit: No PMI: Non-Displaced Heart Sounds: Yes: S1, S2. No: Gallop Murmur: No: Systolic Murmur, Diastolic Murmur Musculoskeletal: Yes: Other (No kyphosis) Extremities: No: Cool, Cyanosis Edema: No Peripheral Pulses: 2+ Left Carotid, 2+ Right Carotid, 2+ Left Doralis Pedis, 2+ Right Dorsalis Pedis Integumentary: No: Jaundice Neurological: Yes: Alert, Oriented (x3). No: Seizure Psychiatric: No: Agitated - Other Data Labs, Other Data: CBC, BMP 03/17/19 12:05 03/17/19 10:10 INR, PTT INR 1.13 (0.83-1.09) H 03/16/19 19:10 Assessment/Plan ECG: NSR, IVCD/inc LBBB, no path q's (+ PRWP), no ST-T abn--no signif change vs 2009 (nonspecific change in QRS morphology) tele: NSR renal mass ablation c/b retroperitoneal bleed: -treatment per IR, critical care -holding NOAC and not on anti-PLT meds -transfuse prn H/H trend HOLDEN on CKD: -baseline renal fxn unknown -worsening here -per crit care, +/- renal senior internet sales consultant -not currently ordered for diuretics -suspect acute blood loss with ? ATN -receiving IVF--low threshold to hold if any sob or hypoxia nonisch CMP/syst CHF: -h/o primary prevn ICD -appears euvolemic--hold lasix (HOLDEN). cautious fluids as doing -not on CORY/ARB per home med list provided by pt (presumably due to CKD) -hold home carvedilol until can observe for hemodynamic stability for 24-48 hrs in setting of acute hemorrhage h/o Afib with prior TIAs: -in sinus here -CHADS VASC 7. no choice but to hold AC for now while at risk of life- threatening bleeding slurred speech, mild facial droop, vision changes: -subtle sx's -not a candidate for AC, t-PA or likely invasive clot removal in any event -CT initial neg -d/w'd dr may--will have neuro evaluate PPM/ICD: -outpt routine monitoring -tele monitoring here est time in data review, pt exam, formulating mgmt plan of potentially life- threatening problems = 35 min
--- NOTE | 2019-03-17 16:13 | CONSULT ---
Consult Consult Specialty:: Nephrology Reason for Consultation:: HOLDEN - History of Present Illness Chief Complaint: s/p ablation History of Present Illness: Pt is a 73 year old male with pmhx of cad, prostate cancer, bilateral renal masses, htn and dm who is s/p cryoablation of a left renal mass. He was found to have retroperitoneal bleed and admitted to ICU. 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 He does have hx of CKD and his renal function has been worsening. He denies shortness of breath. He has not urinated since the procedure and does feel fullness. He denies chest pain or shortness of breath. - History Source History Provided By: Patient, Medical Record - Past Medical History Cardio/Vascular: Yes: HTN Renal/: Yes: Renal Inusuff Rheumatology: Yes: Gout Endocrine: Yes: Diabetes Mellitus - Alcohol/Substance Use Hx Alcohol Use: No - Smoking History Smoking history: Never smoked Home Medications - Allergies Allergies/Adverse Reactions: Allergies Allergy/AdvReac Type Severity Reaction Status Date / Time No Known Allergies Allergy Verified 03/16/19 07:54 - Home Medications Home Medications: Ambulatory Orders Acetaminophen 325 mg PO PRN PRN 03/15/19 Allopurinol [Zyloprim -] 100 mg PO DAILY 03/15/19 Carvedilol 3.125 mg PO BID 03/15/19 Clotrimazole [Lotrimin 1% Cream -] 1 applic TP DAILY 03/15/19 Furosemide 40 mg PO BID 03/15/19 Gabapentin 600 mg PO TID 03/15/19 Glimepiride 4 mg PO DAILY 03/15/19 Insulin (Novolog) [Novolog -] 11 units PO BID 03/15/19 Insulin Detemir [Levemir Flextouch] 44 unit SQ DAILY 03/15/19 Linagliptin [Tradjenta] 5 mg PO DAILY 03/15/19 Lipase/Protease/Amylase [Melida Em 3,000 Units Capsule] 1 each PO TID 03/15/19 Loperamide HCl [Loperamide] 2 mg PO BID 03/15/19 Nystatin [Nyamyc] 100 gm TP DAILY PRN 03/15/19 Rivaroxaban [Xarelto -] 20 mg PO DAILY 03/15/19 Sertraline HCl 150 mg PO DAILY 03/15/19 Simvastatin 5 mg PO DAILY 03/15/19 Tamsulosin HCl [Flomax] 0.8 mg PO DAILY 03/15/19 Family Disease History - Family Disease History Family History: Denies Review of Systems - Review of Systems Constitutional: reports: Malaise Eyes: reports: No Symptoms HENT: reports: No Symptoms Neck: reports: No Symptoms Cardiovascular: reports: No Symptoms Respiratory: reports: No Symptoms Gastrointestinal: reports: No Symptoms Genitourinary: reports: Other (has not urinated since procedure) Musculoskeletal: reports: No Symptoms Neurological: reports: No Symptoms Endocrine: reports: No Symptoms Hematology/Lymphatic: reports: No Symptoms Psychiatric: reports: No Symptoms Physical Exam Vital Signs: Vital Signs Temperature 98.8 F 03/17/19 14:00 Pulse Rate 72 03/17/19 14:00 Respiratory Rate 12 03/17/19 14:00 Blood Pressure 145/64 03/17/19 14:00 O2 Sat by Pulse Oximetry (%) 97 03/17/19 10:22 Constitutional: Yes: Calm Eyes: Yes: Conjunctiva Clear HENT: Yes: Atraumatic Neck: Yes: Supple Respiratory: Yes: CTA Bilaterally Gastrointestinal: Yes: Soft, Abdomen, Obese Renal/: Yes: WNL, Anuria Musculoskeletal: Yes: WNL Edema: No Neurological: Yes: Oriented Psychiatric: Yes: Oriented Labs: CBC, BMP 03/17/19 12:05 03/17/19 10:10 Laboratory Tests 03/16/19 03/16/19 03/16/19 08:25 19:00 19:10 Hgb 7.7 L Potassium Creatinine 1.8 H 2.1 H 03/17/19 03/17/19 03/17/19 05:05 05:05 10:10 Hgb 9.5 L Potassium 5.9 H 5.7 H Creatinine 2.5 H 2.8 H 03/17/19 12:05 Hgb 8.7 L Potassium Creatinine Problem List - Problems (1) HOLDEN (acute kidney injury) Code(s): N17.9 - ACUTE KIDNEY FAILURE, UNSPECIFIED (2) CKD (chronic kidney disease) Code(s): N18.9 - CHRONIC KIDNEY DISEASE, UNSPECIFIED (3) Anemia Code(s): D64.9 - ANEMIA, UNSPECIFIED Assessment/Plan Current Medications Generic Name Dose Route Start Last Admin Trade Name Freq PRN Reason Stop Dose Admin Lactated Ringer's 1,000 ml in 1,000 mls @ 125 mls/hr 03/16/19 19:45 03/17/19 08:58 Lactated Ringers Solution IV 125 mls/hr ASDIR GARRET Administration Insulin Aspart 1 vial 03/16/19 22:00 03/17/19 12:32 Novolog Vial Sliding Scale - SQ Not Given ACHS GARRET Protocol Ondansetron HCl 4 mg 03/16/19 13:04 Zofran Injection IVPUSH Q6H PRN NAUSEA AND/OR VOMITING Impression 1. HOLDEN 2. hyperkalemia 3. renal mass s/p cryoablation 4. htn 5. anemia 6. prostate cancer 7. cad 8. dm Plan - change fluids to 1/2 ns - give lokelma - place vargas, he likely has retention - check renal ultrasound and bladder ultrasound - check ua and lytes - discussed with ICU - discussed with family - monitor hg
[2019-03-17] MEDS ORDERED: SODIUM CHLORIDE 0.45% 1,000 ML IV SCH ×2 (16:30→17:55)
--- NOTE | 2019-03-17 17:51 | PN ---
Physical Exam: SUBJECTIVE: Patient seen and examined at the bedside, reports his pain is greatly improved since yesterday. Dressing is c/d/i, per nurse patient still has not urinated. OBJECTIVE: Vital Signs Period Temp Pulse Resp BP Sys/Valenzuela Pulse Ox Last 24 Hr 97.4 F-98.8 F 50-78 8-17 80-170/32-93 95-100 GENERAL: Awake, alert and oriented, states he's in less pain today HEAD: Normal with no signs of trauma. EYES: Pupils equal, round and reactive to light, extraocular movements intact, sclera anicteric, conjunctiva clear. No lid lag. EARS, NOSE, THROAT: Ears normal, nares patent, oropharynx clear without exudates. Moist mucous membranes. NECK: Normal range of motion, supple without lymphadenopathy LUNGS: Breath sounds equal, clear to auscultation bilaterally on frontal lung nagy, did not roll patient due to pain. No accessory muscle use. HEART: Regular rate and rhythm, normal S1 and S2. ABDOMEN: Soft, diffusely tender L>R hypoactive bowel sounds UPPER EXTREMITIES: 2+ pulses, warm, well-perfused. No cyanosis. No clubbing. No peripheral edema. LOWER EXTREMITIES: 2+ pulses, warm, well-perfused. No calf tenderness. No peripheral edema. NEUROLOGICAL: unable to assess SKIN: Warm, dry, normal turgor Laboratory Results - last 24 hr 03/16/19 03/16/19 03/16/19 19:00 19:00 19:10 WBC 14.8 H RBC 2.63 L Hgb 7.7 L Hct 24.9 L MCV 94.5 MCH 29.3 MCHC 31.0 L RDW 15.7 Plt Count 208 MPV 7.6 Absolute Neuts (auto) 12.4 H Neutrophils % 83.9 H D Lymphocytes % 9.8 D Monocytes % 6.0 Eosinophils % 0.1 D Basophils % 0.2 Nucleated RBC % 0 PT with INR 13.40 H INR 1.13 H Sodium Potassium Chloride Carbon Dioxide Anion Gap BUN Creatinine Est GFR (CKD-EPI)AfAm Est GFR (CKD-EPI)NonAf POC Glucometer Random Glucose Calcium Phosphorus Magnesium Total Bilirubin AST ALT Alkaline Phosphatase Total Protein Albumin Blood Type O POSITIVE Antibody Screen Negative Crossmatch See Detail 03/16/19 03/16/19 03/17/19 19:10 22:45 05:05 WBC 11.9 H RBC 3.10 L Hgb 9.5 L Hct 28.6 L MCV 92.2 MCH 30.7 MCHC 33.3 RDW 15.6 Plt Count 165 D MPV 7.8 Absolute Neuts (auto) 10.4 H Neutrophils % 87.5 H Lymphocytes % 7.3 L D Monocytes % 5.1 Eosinophils % 0.0 D Basophils % 0.1 Nucleated RBC % 0 PT with INR INR Sodium 145 Potassium 5.2 H Chloride 111 H Carbon Dioxide 28 Anion Gap 6 L BUN 46.9 H Creatinine 2.1 H Est GFR (CKD-EPI)AfAm 34.64 Est GFR (CKD-EPI)NonAf 29.89 POC Glucometer 210 Random Glucose 179 H Calcium 7.8 L Phosphorus Magnesium Total Bilirubin 0.3 AST 38 H ALT 18 Alkaline Phosphatase 77 Total Protein 5.2 L Albumin 2.9 L Blood Type Antibody Screen Crossmatch 03/17/19 03/17/19 03/17/19 05:05 05:20 10:10 WBC RBC Hgb Hct MCV MCH MCHC RDW Plt Count MPV Absolute Neuts (auto) Neutrophils % Lymphocytes % Monocytes % Eosinophils % Basophils % Nucleated RBC % PT with INR INR Sodium 140 142 Potassium 5.9 H 5.7 H Chloride 108 H 109 H Carbon Dioxide 26 26 Anion Gap 6 L 7 L BUN 55.5 H 60.1 H Creatinine 2.5 H 2.8 H Est GFR (CKD-EPI)AfAm 28.06 24.47 Est GFR (CKD-EPI)NonAf 24.21 21.11 POC Glucometer 194 Random Glucose 211 H 273 H Calcium 8.0 L 8.2 L Phosphorus 6.7 H Magnesium 2.3 Total Bilirubin 0.5 AST 44 H ALT 19 Alkaline Phosphatase 83 Total Protein 6.1 L Albumin 3.3 L Blood Type Antibody Screen Crossmatch 03/17/19 03/17/19 03/17/19 12:05 12:17 13:29 WBC 11.5 H RBC 2.86 L Hgb 8.7 L Hct 26.0 L MCV 90.9 MCH 30.4 MCHC 33.5 RDW 16.0 H Plt Count 160 MPV 7.1 L Absolute Neuts (auto) 9.8 H Neutrophils % 84.6 H Lymphocytes % 8.3 Monocytes % 6.9 Eosinophils % 0.0 Basophils % 0.2 Nucleated RBC % 0 PT with INR INR Sodium Potassium Chloride Carbon Dioxide Anion Gap BUN Creatinine Est GFR (CKD-EPI)AfAm Est GFR (CKD-EPI)NonAf POC Glucometer 223 208 Random Glucose Calcium Phosphorus Magnesium Total Bilirubin AST ALT Alkaline Phosphatase Total Protein Albumin Blood Type Antibody Screen Crossmatch 03/17/19 17:30 WBC RBC Hgb Hct MCV MCH MCHC RDW Plt Count MPV Absolute Neuts (auto) Neutrophils % Lymphocytes % Monocytes % Eosinophils % Basophils % Nucleated RBC % PT with INR INR Sodium Potassium Chloride Carbon Dioxide Anion Gap BUN Creatinine Est GFR (CKD-EPI)AfAm Est GFR (CKD-EPI)NonAf POC Glucometer 220 Random Glucose Calcium Phosphorus Magnesium Total Bilirubin AST ALT Alkaline Phosphatase Total Protein Albumin Blood Type Antibody Screen Crossmatch Active Medications Generic Name Dose Route Start Last Admin Trade Name Freq PRN Reason Stop Dose Admin Sodium Chloride 1,000 mls @ 75 mls/hr 03/17/19 16:30 03/17/19 16:25 1/2 Normal Saline IV 75 mls/hr ASDIR GARRET Administration Insulin Aspart 1 vial 03/16/19 22:00 03/17/19 17:38 Novolog Vial Sliding Scale - SQ 4 units ACHS GARRET Administration Protocol Ondansetron HCl 4 mg 03/16/19 13:04 Zofran Injection IVPUSH Q6H PRN NAUSEA AND/OR VOMITING ASSESSMENT/PLAN: Pt is a 73 year old male with pmhx of cad, prostate cancer, bilateral renal masses, htn and dm who is s/p cryoablation of a left renal mass. He was found to have retroperitoneal bleed and admitted to ICU. # Renal mass ablation c/b retroperitoneal bleed - Treatment per IR, critical care - Holding Xarelto: need to get more information about the indication for DOAC - Monitor H & H - Transfusion threshold: 8 gm/dL - O2 as needed # HOLDEN on CKD: -baseline renal fxn unknown -worsening -Dr. Haq following, appreciate recommendations - change fluids to 1/2 ns - give lokelma - place vargas, he likely has retention > will consult urology as patient has phimosis # Slurred speech, mild facial droop, vision changes: - subtle sx's noted per family and ICU food and beverage intern - not a candidate for AC, t-PA or likely invasive clot removal in any event - Initial CT negative - Neuro consult - Dr. Lopez following, appreciate recommendations DVT PPx: Mechanical VTE prophylaxis FEN 1/2NS 100cc/hr replete prn PO as tolerated Dispo: Continue ICU monitoring for tenuous respiratory status Visit type - Emergency Visit Emergency Visit: No - New Patient This patient is new to me today: No - Critical Care Critical Care patient: No - Discharge Referral Referred to [facility] No ATTENDING PHYSICIAN STATEMENT I saw and evaluated the patient. I reviewed the resident's note and discussed the case with the resident. I agree with the resident's findings and plan as documented. SUBJECTIVE: OBJECTIVE: ASSESSMENT AND PLAN:
[2019-03-17] MEDS ORDERED: SODIUM CHLORIDE 1,000 ML IV ONE (17:54)
--- NOTE | 2019-03-17 17:54 | CONSULT ---
Consult Consult Specialty:: urology Referred by:: phimosis - History of Present Illness Chief Complaint: 73 Y/O Male patient with history of PC, CAD, HT, DM and bilateral renal mass S/P biopsy. he developed retroperitonial bleeding and drop in H&H. slight back pain, no urine output since yesterday. O/E soft lax abd no palpable bladder, stable vital signs. severe phimosis. BLADDER SCAN: empty bladder - Past Medical History Cardio/Vascular: Yes: HTN Renal/: Yes: Renal Inusuff Rheumatology: Yes: Gout Endocrine: Yes: Diabetes Mellitus - Alcohol/Substance Use Hx Alcohol Use: No - Smoking History Smoking history: Never smoked Home Medications - Allergies Allergies/Adverse Reactions: Allergies Allergy/AdvReac Type Severity Reaction Status Date / Time No Known Allergies Allergy Verified 03/16/19 07:54 - Home Medications Home Medications: Ambulatory Orders Acetaminophen 325 mg PO PRN PRN 03/15/19 Allopurinol [Zyloprim -] 100 mg PO DAILY 03/15/19 Carvedilol 3.125 mg PO BID 03/15/19 Clotrimazole [Lotrimin 1% Cream -] 1 applic TP DAILY 03/15/19 Furosemide 40 mg PO BID 03/15/19 Gabapentin 600 mg PO TID 03/15/19 Glimepiride 4 mg PO DAILY 03/15/19 Insulin (Novolog) [Novolog -] 11 units PO BID 03/15/19 Insulin Detemir [Levemir Flextouch] 44 unit SQ DAILY 03/15/19 Linagliptin [Tradjenta] 5 mg PO DAILY 03/15/19 Lipase/Protease/Amylase [Melida Dr 3,000 Units Capsule] 1 each PO TID 03/15/19 Loperamide HCl [Loperamide] 2 mg PO BID 03/15/19 Nystatin [Nyamyc] 100 gm TP DAILY PRN 03/15/19 Rivaroxaban [Xarelto -] 20 mg PO DAILY 03/15/19 Sertraline HCl 150 mg PO DAILY 03/15/19 Simvastatin 5 mg PO DAILY 03/15/19 Tamsulosin HCl [Flomax] 0.8 mg PO DAILY 03/15/19 Physical Exam Vital Signs: Vital Signs Temperature 98.8 F 03/17/19 14:00 Pulse Rate 78 03/17/19 16:00 Respiratory Rate 15 03/17/19 16:00 Blood Pressure 170/65 03/17/19 16:00 O2 Sat by Pulse Oximetry (%) 97 03/17/19 10:22 Labs: CBC, BMP 03/17/19 12:05 03/17/19 10:10 Assessment/Plan S/p renal biopsy Retroperitonial bleeding. Severe phimosis Prostate cancer Plan: Nephrology consult For circumcision when his medical condition allow.
--- NOTE | 2019-03-17 19:48 | PN ---
Teaching Attending Note Name of Resident: Rose George ATTENDING PHYSICIAN STATEMENT I saw and evaluated the patient. I reviewed the resident's note and discussed the case with the resident. I agree with the resident's findings and plan as documented. SUBJECTIVE: Patient is ICU with no urine output. OBJECTIVE: Vital Signs Temperature 98.7 F 03/17/19 18:00 Pulse Rate 76 03/17/19 18:00 Respiratory Rate 12 03/17/19 18:00 Blood Pressure 125/70 03/17/19 18:00 O2 Sat by Pulse Oximetry (%) 97 03/17/19 18:17 GENERAL: The patient is awake, alert, and fully oriented, in no acute distress. HEAD: Normal with no signs of trauma. EYES: PERRL, extraocular movements intact, sclera anicteric, conjunctiva clear. ENT: Ears normal, oropharynx clear without exudates, moist mucous membranes. NECK: Trachea midline, full range of motion, supple. LUNGS: Breath sounds equal, clear to auscultation bilaterally, no wheezes, no crackles, no accessory muscle use. HEART: Regular rate and rhythm, S1, S2 without murmur, rub or gallop. ABDOMEN: Soft, mildly distended, left abdominal pain on palpation, BS positive , positive for voluntary guarding. EXTREMITIES: 2+ pulses, warm, well-perfused, no edema. NEUROLOGICAL: Cranial nerves II through XII grossly intact. Normal speech, gait not observed. PSYCH: Normal mood, normal affect. SKIN: Warm, dry, normal turgor, no rashes or lesions noted CBCD WBC 11.5 K/mm3 (4.0-10.0) H 03/17/19 12:05 RBC 2.86 M/mm3 (4.00-5.60) L 03/17/19 12:05 Hgb 8.7 GM/dL (11.7-16.9) L 03/17/19 12:05 Hct 26.0 % (35.4-49) L 03/17/19 12:05 MCV 90.9 fl (80-96) 03/17/19 12:05 MCHC 33.5 g/dl (32.0-35.9) 03/17/19 12:05 RDW 16.0 % (11.9-15.9) H 03/17/19 12:05 Plt Count 160 K/MM3 (134-434) 03/17/19 12:05 MPV 7.1 fl (7.5-11.1) L 03/17/19 12:05 CMP Sodium 142 mmol/L (136-145) 03/17/19 10:10 Potassium 5.7 mmol/L (3.5-5.1) H 03/17/19 10:10 Chloride 109 mmol/L (98-107) H 03/17/19 10:10 Carbon Dioxide 26 mmol/L (21-32) 03/17/19 10:10 Anion Gap 7 MMOL/L (8-16) L 03/17/19 10:10 BUN 60.1 mg/dL (7-18) H 03/17/19 10:10 Creatinine 2.8 mg/dL (0.55-1.3) H 03/17/19 10:10 Random Glucose 273 mg/dL (74-106) H 03/17/19 10:10 Calcium 8.2 mg/dL (8.5-10.1) L 03/17/19 10:10 Total Bilirubin 0.5 mg/dL (0.2-1) 03/17/19 05:05 AST 44 U/L (15-37) H 03/17/19 05:05 ALT 19 U/L (13-61) 03/17/19 05:05 Alkaline Phosphatase 83 U/L (45-117) 03/17/19 05:05 Total Protein 6.1 g/dl (6.4-8.2) L 03/17/19 05:05 Albumin 3.3 g/dl (3.4-5.0) L 03/17/19 05:05 Current Medications Generic Name Dose Route Start Last Admin Trade Name Freq PRN Reason Stop Dose Admin Sodium Chloride 1,000 mls @ 500 mls/hr 03/17/19 17:54 03/17/19 18:06 Normal Saline - IV 03/17/19 19:53 500 mls/hr ONCE ONE Administration Sodium Chloride 1,000 mls @ 100 mls/hr 03/17/19 17:55 03/17/19 18:12 1/2 Normal Saline IV 100 mls/hr ASDIR GARRET Administration Insulin Aspart 1 vial 03/16/19 22:00 03/17/19 17:38 Novolog Vial Sliding Scale - SQ 4 units ACHS GARRET Administration Protocol Ondansetron HCl 4 mg 03/16/19 13:04 Zofran Injection IVPUSH Q6H PRN NAUSEA AND/OR VOMITING Home Medications Medication Instructions Recorded Acetaminophen 325 mg PO PRN PRN 03/15/19 Allopurinol [Zyloprim -] 100 mg PO DAILY 03/15/19 Carvedilol 3.125 mg PO BID 03/15/19 Clotrimazole [Lotrimin 1% Cream -] 1 applic TP DAILY 03/15/19 Furosemide 40 mg PO BID 03/15/19 Gabapentin 600 mg PO TID 03/15/19 Glimepiride 4 mg PO DAILY 03/15/19 Insulin (Novolog) [Novolog -] 11 units PO BID 03/15/19 Insulin Detemir [Levemir Flextouch] 44 unit SQ DAILY 03/15/19 Linagliptin [Tradjenta] 5 mg PO DAILY 03/15/19 Lipase/Protease/Amylase [Creon Dr 1 each PO TID 03/15/19 3,000 Units Capsule] Loperamide HCl [Loperamide] 2 mg PO BID 03/15/19 Nystatin [Nyamyc] 100 gm TP DAILY PRN 03/15/19 Rivaroxaban [Xarelto -] 20 mg PO DAILY 03/15/19 Sertraline HCl 150 mg PO DAILY 03/15/19 Simvastatin 5 mg PO DAILY 03/15/19 Tamsulosin HCl [Flomax] 0.8 mg PO DAILY 03/15/19 CT abdomen and pelvis without contrast: Large solid left lower pole renal mass strongly suspecoius for a renal cell carcinoma. right renal cyst, no evidence of metastatic disease or acute pathology within the abdomen or pelvis. ASSESSMENT AND PLAN: Patient is a 73yo male with PMHx of CAD, prostate Ca, b/l kidney mass, HTN, and DM, s/p cryoablation and renal biopsy of L kidney mass, suspicious of tumor (RCC) # POD#0 , Retropereatineal Bleed s/p cryoablation of left kidney due to a kidney mass. type and screen for 2 units , transfuse if hgb drops below 8.0. FFP , CT of abdomen to r/o bleed. Discussed with . # ARF: nephro consult appreciated,IVF. # Hx of PPM : patient is pacing on the monitor. # Hx of CAD/Prostate Ca # Hx of T2DM on ss with coverage # Hx of HtN: hypotension now admit to ICU and monitor closely DVT Px: SCds
[2019-03-17 19:56] LABS: MAGNESIUM 2.3 mg/dL (1.8-2.4)
[2019-03-18] MEDS: MORPHINE SULFATE 2 MG/ML VIAL IVPUSH PRN ×3 (00:14→12:49)
[2019-03-18] MEDS: ACETAMINOPHEN 1000 MG/100 ML VIAL (NON FORMULARY) IVPB PRN ×2 (02:26→23:46)
[2019-03-18] MEDS: INSULIN SLIDING SCALE (NOVOLOG) 1 VIAL SQ SCH ×4 (06:26→23:05)
[2019-03-18 06:59] LABS: BLOOD UREA NITROGEN 68.8 mg/dL (7-18); CREATININE 2.8 mg/dL (0.55-1.3); MAGNESIUM 2.2 mg/dL (1.8-2.4); PHOSPHOROUS 5.2 mg/dL (2.5-4.9); POTASSIUM 5.1 mmol/L (3.5-5.1)
[2019-03-18 07:03] LABS: BASO % 0.1 % (0-2.0); EOS % 0.3 % (0-4.5); HEMATOCRIT 23.8 % (35.4-49); HEMOGLOBIN 8.1 GM/dL (11.7-16.9); LYMPH % 14.8 % (8-40); MCH 31.2 pg (25.7-33.7); MEAN CELL VOLUME 91.7 fl (80-96); MEAN PLT VOLUME 7.6 fl (7.5-11.1); MONO % 7.6 % (3.8-10.2); NEUT % 77.2 % (42.8-82.8); PLATELET COUNT 122 K/MM3 (134-434); RDW 16.1 % (11.9-15.9); WHITE BLOOD COUNT 8.7 K/mm3 (4.0-10.0)
--- NOTE | 2019-03-18 08:23 | PN ---
Physical Exam: SUBJECTIVE: Patient seen and examined at bedside-patients states that he is having left flank pain still and he has not made any urine since before his surgery- he is also complaining of a cough and runny nose; he states that his speech is back to baseline after yesterdays episode- he denies any CP/N/V fevers or chills UPDATE: around 11 am patient went into SVT then afib with RVR - failed vagal manuvers; needed adenosine x2; amio; then lopressor; patient converted back to sinus OBJECTIVE: Vital Signs Period Temp Pulse Resp BP Sys/Valenzuela Pulse Ox Last 24 Hr 97.9 F-98.9 F 69-88 8-24 125-174/54-85 95-97 GENERAL: The patient is awake, alert, and fully oriented, in no acute distress. EYES:PEERLA; EOMI; no scleral icterus NECK: no JVD; no lymphadenopathy LUNGS: slight coarse breath sounds and crackles at the L base HEART: Regular rate and rhythm, S1, S2 without murmur, rub or gallop. ABDOMEN: soft; suprapubic tenderness; nondistended +BS in all 4 quadrants. EXTREMITIES: 2+ pulses, warm, well-perfused, no edema. NEUROLOGICAL: Cranial nerves II through XII grossly intact. normal speech; no facial asymmetry; strength 5/5 Bl UE and LE sensation intact throughout PSYCH: Normal mood, normal affect. SKIN: Warm, dry, normal turgor, no rashes or lesions noted Laboratory Results - last 24 hr 03/17/19 03/17/19 03/17/19 10:10 12:05 12:17 WBC 11.5 H RBC 2.86 L Hgb 8.7 L Hct 26.0 L MCV 90.9 MCH 30.4 MCHC 33.5 RDW 16.0 H Plt Count 160 MPV 7.1 L Absolute Neuts (auto) 9.8 H Neutrophils % 84.6 H Lymphocytes % 8.3 Monocytes % 6.9 Eosinophils % 0.0 Basophils % 0.2 Nucleated RBC % 0 Sodium 142 Potassium 5.7 H Chloride 109 H Carbon Dioxide 26 Anion Gap 7 L BUN 60.1 H Creatinine 2.8 H Est GFR (CKD-EPI)AfAm 24.47 Est GFR (CKD-EPI)NonAf 21.11 POC Glucometer 223 Random Glucose 273 H Calcium 8.2 L Phosphorus Magnesium 2.3 09/12/19 09/12/19 09/12/19 13:29 17:30 20:57 WBC RBC Hgb Hct MCV MCH MCHC RDW Plt Count MPV Absolute Neuts (auto) Neutrophils % Lymphocytes % Monocytes % Eosinophils % Basophils % Nucleated RBC % Sodium Potassium Chloride Carbon Dioxide Anion Gap BUN Creatinine Est GFR (CKD-EPI)AfAm Est GFR (CKD-EPI)NonAf POC Glucometer 208 220 153 Random Glucose Calcium Phosphorus Magnesium 03/18/19 03/18/19 03/18/19 06:05 06:05 06:15 WBC 8.7 RBC 2.60 L Hgb 8.1 L Hct 23.8 L MCV 91.7 MCH 31.2 MCHC 34.0 RDW 16.1 H Plt Count 122 L D MPV 7.6 Absolute Neuts (auto) 6.7 Neutrophils % 77.2 Lymphocytes % 14.8 D Monocytes % 7.6 Eosinophils % 0.3 D Basophils % 0.1 Nucleated RBC % 0 Sodium 138 Potassium 5.1 Chloride 106 Carbon Dioxide 25 Anion Gap 7 L BUN 68.8 H Creatinine 2.8 H Est GFR (CKD-EPI)AfAm 24.47 Est GFR (CKD-EPI)NonAf 21.11 POC Glucometer 142 Random Glucose 165 H Calcium 8.0 L Phosphorus 5.2 H Magnesium 2.2 Active Medications Generic Name Dose Route Start Last Admin Trade Name Freq PRN Reason Stop Dose Admin Acetaminophen 1,000 mg 03/17/19 21:34 03/18/19 02:26 Ofirmev Injection - IVPB 1,000 mg Q6H PRN Administration PAIN LEVEL 4 - 6 Albuterol Sulfate 1 amp 03/18/19 08:06 Ventolin 0.083% Nebulizer Soln - NEB Q6H PRN SHORT OF BREATH/WHEEZING Sodium Chloride 1,000 mls @ 100 mls/hr 03/17/19 17:55 03/17/19 18:12 1/2 Normal Saline IV 100 mls/hr ASDIR GARRET Administration Insulin Aspart 1 vial 03/16/19 22:00 03/18/19 06:26 Novolog Vial Sliding Scale - SQ Not Given ACHS GARRET Protocol Morphine Sulfate 2 mg 03/17/19 21:34 03/18/19 00:14 Morphine Sulfate IVPUSH 2 mg Q4H PRN Administration PAIN LEVEL 7 - 10 Ondansetron HCl 4 mg 03/16/19 13:04 Zofran Injection IVPUSH Q6H PRN NAUSEA AND/OR VOMITING ASSESSMENT/PLAN: Pt is a 73 year old male with pmhx of cad, prostate cancer, bilateral renal masses, htn and dm who is s/p cryoablation of a left renal mass. He was found to have retroperitoneal bleed and admitted to ICU. # Renal mass ablation c/b retroperitoneal bleed - Treatment per IR - Holding Xarelto: - Monitor H & H - Transfusion threshold: 8 gm/dL - O2 as needed # HOLDEN on CKD: -baseline renal fxn unknown -worsening Cr this AM 2.8; patient is not making urine -Dr. Haq following, appreciate recommendations - change fluids to 1/2 ns - give lokelma - vargas could not be placed by urology last evening due to phimosis # Slurred speech, mild facial droop, vision changes: - subtle sx's noted per family and ICU ad operations intern - not a candidate for AC, t-PA or likely invasive clot removal in any event - Initial CT negative - Neuro consult, Dr. Palmer - Dr. Lopez following, appreciate recommendations #Rapid afib with RVR patient converted back to sinus -cannot get AC due to bleed -lopressor PRN -lasix given as patient is liekly overloaded given worsensing exam and CXR DVT PPx: Mechanical VTE prophylaxis Problem List - Problems (1) Retroperitoneal bleed Code(s): R58 - HEMORRHAGE, NOT ELSEWHERE CLASSIFIED (2) HOLDEN (acute kidney injury) Code(s): N17.9 - ACUTE KIDNEY FAILURE, UNSPECIFIED (3) Anemia Code(s): D64.9 - ANEMIA, UNSPECIFIED (4) CKD (chronic kidney disease) Code(s): N18.9 - CHRONIC KIDNEY DISEASE, UNSPECIFIED Visit type - Emergency Visit Emergency Visit: Yes ED Registration Date: 03/16/19 Care time: The patient presented to the Emergency Department on the above date and was hospitalized for further evaluation of their emergent condition. - New Patient This patient is new to me today: Yes Date on this admission: 03/18/19 - Critical Care Critical Care patient: Yes Total Critical Care Time (in minutes): 35 Critical Care Statement: The care of this patient involved high complexity decision making to prevent further life threatening deterioration of the patient 's condition and/or to evaluate & treat vital organ system(s) failure or risk of failure. ATTENDING PHYSICIAN STATEMENT I saw and evaluated the patient. I reviewed the resident's note and discussed the case with the resident. I agree with the resident's findings and plan as documented. SUBJECTIVE: OBJECTIVE: ASSESSMENT AND PLAN:
--- NOTE | 2019-03-18 08:47 | PN ---
Teaching Attending Note Name of Resident: Sloane Urbina ATTENDING PHYSICIAN STATEMENT I saw and evaluated the patient. I reviewed the resident's note and discussed the case with the resident. I agree with the resident's findings and plan as documented. SUBJECTIVE: Patient is in ICU, no urinary output today. OBJECTIVE: Vital Signs Temperature 98.9 F 03/18/19 06:00 Pulse Rate 88 03/18/19 06:00 Respiratory Rate 24 H 03/18/19 06:00 Blood Pressure 159/79 03/18/19 06:00 O2 Sat by Pulse Oximetry (%) 95 03/17/19 19:49 GENERAL: The patient is awake, feels weak. HEAD: Normal with no signs of trauma. EYES: PERRL, EOMI, sclera anicteric, conjunctiva clear. ENT: Ears normal, oropharynx clear without exudates, moist mucous membranes. NECK: Trachea midline, full range of motion, supple. LUNGS: Breath sounds equal, clear to auscultation bilaterally, no wheezes, no crackles, no accessory muscle use. HEART: Regular rate and rhythm, S1, S2 without murmur, rub or gallop. ABDOMEN: Soft, mildly distended, left abdominal pain on palpation, BS positive , positive for voluntary guarding. EXTREMITIES: 2+ pulses, warm, well-perfused, no edema. NEUROLOGICAL: Cranial nerves II through XII grossly intact. Normal speech, gait not observed. PSYCH: Normal mood, normal affect. SKIN: Warm, dry, normal turgor, no rashes or lesions noted CBCD WBC 8.7 K/mm3 (4.0-10.0) 03/18/19 06:05 RBC 2.60 M/mm3 (4.00-5.60) L 03/18/19 06:05 Hgb 8.1 GM/dL (11.7-16.9) L 03/18/19 06:05 Hct 23.8 % (35.4-49) L 03/18/19 06:05 MCV 91.7 fl (80-96) 03/18/19 06:05 MCHC 34.0 g/dl (32.0-35.9) 03/18/19 06:05 RDW 16.1 % (11.9-15.9) H 03/18/19 06:05 Plt Count 122 K/MM3 (134-434) L D 03/18/19 06:05 MPV 7.6 fl (7.5-11.1) 03/18/19 06:05 CMP Sodium 138 mmol/L (136-145) 03/18/19 06:05 Potassium 5.1 mmol/L (3.5-5.1) 03/18/19 06:05 Chloride 106 mmol/L (98-107) 03/18/19 06:05 Carbon Dioxide 25 mmol/L (21-32) 03/18/19 06:05 Anion Gap 7 MMOL/L (8-16) L 03/18/19 06:05 BUN 68.8 mg/dL (7-18) H 03/18/19 06:05 Creatinine 2.8 mg/dL (0.55-1.3) H 03/18/19 06:05 Random Glucose 165 mg/dL (74-106) H 03/18/19 06:05 Calcium 8.0 mg/dL (8.5-10.1) L 03/18/19 06:05 Total Bilirubin 0.5 mg/dL (0.2-1) 03/17/19 05:05 AST 44 U/L (15-37) H 03/17/19 05:05 ALT 19 U/L (13-61) 03/17/19 05:05 Alkaline Phosphatase 83 U/L (45-117) 03/17/19 05:05 Total Protein 6.1 g/dl (6.4-8.2) L 03/17/19 05:05 Albumin 3.3 g/dl (3.4-5.0) L 03/17/19 05:05 Current Medications Generic Name Dose Route Start Last Admin Trade Name Freq PRN Reason Stop Dose Admin Acetaminophen 1,000 mg 03/17/19 21:34 03/18/19 02:26 Ofirmev Injection - IVPB 1,000 mg Q6H PRN Administration PAIN LEVEL 4 - 6 Albuterol Sulfate 1 amp 03/18/19 08:06 Ventolin 0.083% Nebulizer Soln - NEB Q6H PRN SHORT OF BREATH/WHEEZING Sodium Chloride 1,000 mls @ 100 mls/hr 03/17/19 17:55 03/17/19 18:12 1/2 Normal Saline IV 100 mls/hr ASDIR [facility] Administration Insulin Aspart 1 vial 03/16/19 22:00 03/18/19 06:26 Novolog Vial Sliding Scale - SQ Not Given ACHS [facility] Protocol Morphine Sulfate 2 mg 03/17/19 21:34 03/18/19 00:14 Morphine Sulfate IVPUSH 2 mg Q4H PRN Administration PAIN LEVEL 7 - 10 Ondansetron HCl 4 mg 03/16/19 13:04 Zofran Injection IVPUSH Q6H PRN NAUSEA AND/OR VOMITING Home Medications Medication Instructions Recorded Acetaminophen 325 mg PO PRN PRN 03/15/19 Allopurinol [Zyloprim -] 100 mg PO DAILY 03/15/19 Carvedilol 3.125 mg PO BID 03/15/19 Clotrimazole [Lotrimin 1% Cream -] 1 applic TP DAILY 03/15/19 Furosemide 40 mg PO BID 03/15/19 Gabapentin 600 mg PO TID 03/15/19 Glimepiride 4 mg PO DAILY 03/15/19 Insulin (Novolog) [Novolog -] 11 units PO BID 03/15/19 Insulin Detemir [Levemir Flextouch] 44 unit SQ DAILY 03/15/19 Linagliptin [Tradjenta] 5 mg PO DAILY 03/15/19 Lipase/Protease/Amylase [Creon Dr 1 each PO TID 03/15/19 3,000 Units Capsule] Loperamide HCl [Loperamide] 2 mg PO BID 03/15/19 Nystatin [Nyamyc] 100 gm TP DAILY PRN 03/15/19 Rivaroxaban [Xarelto -] 20 mg PO DAILY 03/15/19 Sertraline HCl 150 mg PO DAILY 03/15/19 Simvastatin 5 mg PO DAILY 03/15/19 Tamsulosin HCl [Flomax] 0.8 mg PO DAILY 03/15/19 Intake & Output 03/15/19 03/16/19 03/17/19 03/18/19 23:59 23:59 23:59 23:59 Intake Total 1600 2462 1250 Output Total 0 400 Balance 1600 2462 850 Weight 113.398 kg 113.398 kg 120.[address] abdomen and pelvis without contrast: Large solid left lower pole renal mass strongly suspecoius for a renal cell carcinoma. right renal cyst, no evidence of metastatic disease or acute pathology within the abdomen or pelvis. ASSESSMENT AND PLAN: Patient is a 73yo male with PMHx of CAD, prostate Ca, b/l kidney mass, HTN, and DM, s/p cryoablation and renal biopsy of L kidney mass, suspicious of tumor (RCC) # POD#1 , Retropereatineal Bleed s/p cryoablation of left kidney due to a kidney mass. type and screen for 2 units ,s/p transfusion of 2 units prbc and one unit of FFP, transfuse if hgb drops below 8.0. CT of abdomen to r/o bleed , Discussed with . # acute blood loss with hemoglobin drop s/p 2 units of PRBC and one unit of FFP . # ARF: 2.8 cr, will follow , nephro consult appreciated. # Hx of PPM and defibrilator . # Hx of CAD/Prostate Ca # Hx of T2DM on ss with coverage # Hx of HtN: continue to monitor DVT Px: SCds
--- NOTE | 2019-03-18 08:53 | PN ---
Progress Note, Physician Chief Complaint: In pain , left flank region. Receiving morphine BP is moderately elevated in setting of pain. Tele: NSR, Rare VPCs. single couplet - Current Medication List Current Medications: Active Medications Acetaminophen (Ofirmev Injection -) 1,000 mg IVPB Q6H PRN PRN Reason: PAIN LEVEL 4 - 6 Last Admin: 03/18/19 02:26 Dose: 1,000 mg Albuterol Sulfate (Ventolin 0.083% Nebulizer Soln -) 1 amp NEB Q6H PRN PRN Reason: SHORT OF BREATH/WHEEZING Sodium Chloride (1/2 Normal Saline) 1,000 mls @ 100 mls/hr IV ASDIR GARRET Last Admin: 03/17/19 18:12 Dose: 100 mls/hr Insulin Aspart (Novolog Vial Sliding Scale -) 1 vial SQ ACHS [facility]; Protocol Last Admin: 03/18/19 06:26 Dose: Not Given Morphine Sulfate (Morphine Sulfate) 2 mg IVPUSH Q4H PRN PRN Reason: PAIN LEVEL 7 - 10 Last Admin: 03/18/19 08:30 Dose: 2 mg Ondansetron HCl (Zofran Injection) 4 mg IVPUSH Q6H PRN PRN Reason: NAUSEA AND/OR VOMITING - Objective Vital Signs: Vital Signs Temperature 98.9 F 03/18/19 06:00 Pulse Rate 88 03/18/19 06:00 Respiratory Rate 24 H 03/18/19 06:00 Blood Pressure 159/79 03/18/19 06:00 O2 Sat by Pulse Oximetry (%) 95 03/17/19 19:49 Constitutional: Yes: No Distress Cardiovascular: Yes: Regular Rate and Rhythm Respiratory: Yes: Other (decreased breath sounds bases, no active wheezing) Gastrointestinal: Yes: Soft (mild tenderness over left flank, no rebound or guarding) Edema: No Neurological: Yes: Alert, Oriented Labs: CBC, BMP 03/18/19 06:05 03/18/19 06:05 INR, PTT INR 1.13 (0.83-1.09) H 03/16/19 19:10 - ....Imaging Chest X-ray: Report Reviewed (increased congestive changes) MRI: Image Reviewed Assessment/Plan IMP/PLAN: Renal mass ablation c/b retroperitoneal bleed: -treatment per IR, critical care -holding NOAC and not on anti-PLT meds -transfuse prn H/H trend HOLDEN on CKD: -baseline renal fxn unknown -worsening here -per crit care; would consult renal -not currently ordered for diuretics -suspect acute blood loss with ? ATN -would d/c IVF as CXR with worsening congestive changes NICM w/ chronic syst CHF: -h/o primary prevn ICD -slightly volume overloaded today w/ CXR showing congestive changes -not on CORY/ARB per home med list provided by pt (presumably due to CKD) -hold home carvedilol until can observe for hemodynamic stability for 24-48 hrs in setting of acute hemorrhage h/o Afib with prior TIAs: -in sinus here -CHADS VASC 7. no choice but to hold AC for now while at risk of life- threatening bleeding slurred speech, mild facial droop, vision changes: -subtle sx's -not a candidate for AC, t-PA or likely invasive clot removal in any event -CT initial neg -Neuro eval planned PPM/ICD: -outpt routine monitoring -tele monitoring here
--- NOTE | 2019-03-18 09:39 | PN ---
Progress Note (short form) - Note Progress Note: Anesthesia CERTIFIED PHYSICIAN ASSISTANT followup. CERTIFIED PHYSICIAN ASSISTANT d/c'd 03/17/2019. Discharged from anesthesia service.
[2019-03-18] MEDS ORDERED: CARVEDILOL 3.125 MG TABLET (FP) PO SCH ×2 (10:30→22:00)
[2019-03-18] MEDS ORDERED: FUROSEMIDE 40 MG/4 ML INJECTABLE VIAL IVPUSH ONE ×2 (10:52→19:26)
[2019-03-18] MEDS ORDERED: ADENOSINE 6 MG/2 ML VIAL IVPUSH ONE ×3 (10:56→11:57)
[2019-03-18] MEDS ORDERED: AMIODARONE HCL 150 MG/3 ML VIAL ONE (11:00)
[2019-03-18] MEDS ORDERED: AMIODARONE HCL 150 MG/3 ML VIAL IVPUSH ONE (11:02)
[2019-03-18] MEDS ORDERED: METOPROLOL TARTRATE 5 MG/5 ML VIAL ONE (11:05)
--- NOTE | 2019-03-18 11:06 | PN ---
Teaching Attending Note Name of Resident: Dago Jimenez ATTENDING PHYSICIAN STATEMENT I saw and evaluated the patient. I reviewed the resident's note and discussed the case with the resident. I agree with the resident's findings and plan as documented. SUBJECTIVE: Patient seen and examined in the ICU. Awake and alert. Noted SVT that broke with vagal stimulation. More tachypneic today, given Lasix for increased pulmonary vascular congestion on CXR. Denies CP. Seen by Urology yesterday. Cardiology at the bedside. Intake & Output 03/15/19 03/16/19 03/17/19 03/18/19 23:59 23:59 23:59 23:59 Intake Total 1600 2462 1250 Output Total 0 400 Balance 1600 2462 850 Weight 250 lb 250 lb 266 lb 8.622 oz 268 lb 3.2 oz Last Vital Signs Temp Pulse Resp BP Pulse Ox 98.9 F 88 24 H 159/79 95 03/18/19 06:00 03/18/19 06:00 03/18/19 06:00 03/18/19 06:00 03/17/19 19:49 Active Medications Acetaminophen (Ofirmev Injection -) 1,000 mg IVPB Q6H PRN PRN Reason: PAIN LEVEL 4 - 6 Last Admin: 03/18/19 02:26 Dose: 1,000 mg Albuterol Sulfate (Ventolin 0.083% Nebulizer Soln -) 1 amp NEB Q6H PRN PRN Reason: SHORT OF BREATH/WHEEZING Amiodarone HCl (Cordarone Injection -) 150 mg IVPUSH ONCE ONE Stop: 03/18/19 11:03 Carvedilol (Coreg -) 3.125 mg PO BID [facility] Insulin Aspart (Novolog Vial Sliding Scale -) 1 vial SQ ACHS [facility]; Protocol Last Admin: 03/18/19 06:26 Dose: Not Given Melatonin (Melatonin) 5 mg PO HS PRN PRN Reason: INSOMNIA Morphine Sulfate (Morphine Sulfate) 2 mg IVPUSH Q4H PRN PRN Reason: PAIN LEVEL 7 - 10 Last Admin: 03/18/19 08:30 Dose: 2 mg Ondansetron HCl (Zofran Injection) 4 mg IVPUSH Q6H PRN PRN Reason: NAUSEA AND/OR VOMITING GENERAL: Awake, alert, generalized malaise HEAD: Normal with no signs of trauma. EYES: Pupils equal, round and reactive to light, extraocular movements intact, sclera anicteric, conjunctiva clear. EARS, NOSE, THROAT: Ears normal, nares patent, oropharynx clear without exudates. Moist mucous membranes. NECK: Normal range of motion, supple without lymphadenopathy, JVD, or masses. LUNGS: bibasilar rales, tachypneic, (+) accessory muscle use. HEART: Regular rate and rhythm, normal S1 and S2 without murmur, rub or gallop. ABDOMEN: Soft, (+) mild tenderness at the biopsy site, no fluid collection, (+) BS, not distended, no guarding, no rebound, no masses. MUSCULOSKELETAL: Normal range of motion at all joints. No bony deformities or tenderness. UPPER EXTREMITIES: 2+ pulses, warm, well-perfused. No cyanosis. No clubbing. Cap refill <2 seconds. No peripheral edema. LOWER EXTREMITIES: 2+ pulses, warm, well-perfused. No calf tenderness. No peripheral edema. NEUROLOGICAL: Non-focal PSYCHIATRIC: Cooperative. Good eye contact. Appropriate mood and affect. SKIN: Warm, dry, normal turgor, no rashes or lesions noted. Laboratory Results - last 24 hr 03/17/19 03/17/19 03/17/19 10:10 12:05 12:17 WBC 11.5 H RBC 2.86 L Hgb 8.7 L Hct 26.0 L MCV 90.9 MCH 30.4 MCHC 33.5 RDW 16.0 H Plt Count 160 MPV 7.1 L Absolute Neuts (auto) 9.8 H Neutrophils % 84.6 H Lymphocytes % 8.3 Monocytes % 6.9 Eosinophils % 0.0 Basophils % 0.2 Nucleated RBC % 0 Sodium 142 Potassium 5.7 H Chloride 109 H Carbon Dioxide 26 Anion Gap 7 L BUN 60.1 H Creatinine 2.8 H Est GFR (CKD-EPI)AfAm 24.47 Est GFR (CKD-EPI)NonAf 21.11 POC Glucometer 223 Random Glucose 273 H Calcium 8.2 L Phosphorus Magnesium 2.3 03/17/19 03/17/19 03/17/19 13:29 17:30 20:57 WBC RBC Hgb Hct MCV MCH MCHC RDW Plt Count MPV Absolute Neuts (auto) Neutrophils % Lymphocytes % Monocytes % Eosinophils % Basophils % Nucleated RBC % Sodium Potassium Chloride Carbon Dioxide Anion Gap BUN Creatinine Est GFR (CKD-EPI)AfAm Est GFR (CKD-EPI)NonAf POC Glucometer 208 220 153 Random Glucose Calcium Phosphorus Magnesium 03/18/19 03/18/19 03/18/19 06:05 06:05 06:15 WBC 8.7 RBC 2.60 L Hgb 8.1 L Hct 23.8 L MCV 91.7 MCH 31.2 MCHC 34.0 RDW 16.1 H Plt Count 122 L D MPV 7.6 Absolute Neuts (auto) 6.7 Neutrophils % 77.2 Lymphocytes % 14.8 D Monocytes % 7.6 Eosinophils % 0.3 D Basophils % 0.1 Nucleated RBC % 0 Sodium 138 Potassium 5.1 Chloride 106 Carbon Dioxide 25 Anion Gap 7 L BUN 68.8 H Creatinine 2.8 H Est GFR (CKD-EPI)AfAm 24.47 Est GFR (CKD-EPI)NonAf 21.11 POC Glucometer 142 Random Glucose 165 H Calcium 8.0 L Phosphorus 5.2 H Magnesium 2.2 ASSESSMENT/PLAN: POD #2: Cryoablation & Renal biopsy Aflutter / SVT Retroperitoneal hematoma Resolving hypotension PPM CAD Prostate CA Bilateral kidney masses HTN Cardiology at the bedside Monitor H & H Normal transfusion threshold: 8 gm/dL O2 as needed Xarelto on hold PO as tolerated Mechanical VTE prophylaxis Glycemic control ICU monitoring for tenuous cardiac / respiratory status Dr Gonzalez Critical care time spent in reviewing chart, evaluating patient and formulating plan - 36 minutes.
[2019-03-18] MEDS ORDERED: METOPROLOL TARTRATE 5 MG/5 ML VIAL IVPUSH ONE ×2 (11:17→17:48)
--- NOTE | 2019-03-18 11:56 | ECHO ---
Name: NEGRO WINN Exam:Adult Echocardiogram Study Date: 03/18/2019 09:36 AM Age: 73 yrs Reason For Study: ef assessment/chf Height: 72 in Weight: 268 lb BSA: 2.4 m2 MMode/2D Measurements & Calculations IVSd: 0.94 cm Ao root diam: 4.0 cm LVIDd: 6.3 cm LA dimension: 4.6 cm LVIDs: 3.5 cm ACS: 2.3 cm LVPWd: 1.2 cm IVSs: 1.2 cm LVPWs: 1.6 cm EDV(Teich): 201.5 ml ESV(Teich): 52.0 ml EPSS: 1.3 cm Doppler Measurements & Calculations MV E max hillary: 89.0 cm/sec Ao V2 max: 138.8 cm/sec MV A max hillary: 71.6 cm/sec Ao max P.7 mmHg MV E/A: 1.2 AI P1/2t: 220.7 msec AI max hillary: 331.9 cm/sec MR max hillary: 506.9 cm/sec AI max P.5 mmHg MR max P.1 mmHg AI dec slope: 440.6 cm/sec2 TR max hillary: 382.9 cm/sec PI end-d hillary: 144.8 cm/sec TR max P.8 mmHg Med Peak E' Hillary: 6.1 cm/sec Med E/e': 14.5 Lat Peak E' Hillary: 10.5 cm/sec Lat E/e': 8.5 Procedure The study was technically difficult with many images being suboptimal in quality. Left Ventricle The left ventricle is mildly dilated. Left ventricular systolic function is grossly normal. Ejection Fraction = 50-55%. The transmitral spectral Doppler flow pattern is suggestive of pseudonormalization. Right Ventricle The right ventricle is grossly normal size. There is a pacemaker lead in the right ventricle. The rig ht ventricular systolic function is grossly normal. Atria The left atrium is moderately dilated. Right atrial size is normal. Mitral Valve The mitral valve is normal in structure and function. There is no mitral valve stenosis. There is mil d to moderate mitral regurgitation. Tricuspid Valve The tricuspid valve is normal in structure and function. There is mild to moderate tricuspid regurgit ation. Right ventricular systolic pressure is elevated at 50-60mmHg. Aortic Valve There is mild aortic sclerosis.;. No hemodynamically significant valvular aortic stenosis. Mild aorti c regurgitation. Pulmonic Valve The pulmonic valve is not well seen, but is grossly normal. There is no pulmonic valvular stenosis. M ild pulmonic valvular regurgitation. Great Vessels The aortic root is normal size. Pericardium/Pleura There is no pericardial effusion. Interpretation Summary The study was technically difficult with many images being suboptimal in quality. The left ventricle is mildly dilated. Left ventricular systolic function is grossly normal. Ejection Fraction = 50-55%. The left atrium is moderately dilated. There is mild to moderate mitral regurgitation. There is mild to moderate tricuspid regurgitation. Right ventricular systolic pressure is elevated at 50-60mmHg. Mild aortic regurgitation. There is no pericardial effusion. MD Carney *Ramón 03/18/2019 11:56 AM
[2019-03-18 12:32] VITALS: BMI 36.3
[2019-03-18] MEDS ORDERED: CARVEDILOL 3.125 MG TABLET (FP) PO ONE (12:33)
--- NOTE | 2019-03-18 12:56 | PN ---
Progress Note, Physician History of Present Illness: Pt seen and examined at bedside. He is awake and alert. He went into a-flutter/ SVT. He did make urine. - Current Medication List Current Medications: Active Medications Acetaminophen (Ofirmev Injection -) 1,000 mg IVPB Q6H PRN PRN Reason: PAIN LEVEL 4 - 6 Last Admin: 03/18/19 02:26 Dose: 1,000 mg Albuterol Sulfate (Ventolin 0.083% Nebulizer Soln -) 1 amp NEB Q6H PRN PRN Reason: SHORT OF BREATH/WHEEZING Carvedilol (Coreg -) 3.125 mg PO BID G[facility]RET Insulin Aspart (Novolog Vial Sliding Scale -) 1 vial SQ ACHS [facility]; Protocol Last Admin: 03/18/19 11:29 Dose: 2 units Melatonin (Melatonin) 5 mg PO HS PRN PRN Reason: INSOMNIA Morphine Sulfate (Morphine Sulfate) 2 mg IVPUSH Q4H PRN PRN Reason: PAIN LEVEL 7 - 10 Last Admin: 03/18/19 12:49 Dose: 2 mg Ondansetron HCl (Zofran Injection) 4 mg IVPUSH Q6H PRN PRN Reason: NAUSEA AND/OR VOMITING - Objective Vital Signs: Vital Signs Temperature 98.3 F 03/18/19 10:18 Pulse Rate 50 L 03/18/19 12:00 Respiratory Rate 20 03/18/19 11:59 Blood Pressure 130/63 03/18/19 12:00 O2 Sat by Pulse Oximetry (%) 95 03/17/19 19:49 Constitutional: Yes: Calm Eyes: Yes: Conjunctiva Clear HENT: Yes: Atraumatic Neck: Yes: Supple Cardiovascular: Yes: S1, S2 Respiratory: Yes: On Nasal O2 Gastrointestinal: Yes: Soft, Abdomen, Obese Genitourinary: Yes: WNL Musculoskeletal: Yes: WNL Edema: Yes Edema: LLE: Trace, RLE: Trace Neurological: Yes: Oriented Psychiatric: Yes: Oriented Labs: CBC, BMP 03/18/19 06:05 03/18/19 06:05 INR, PTT INR 1.13 (0.83-1.09) H 03/16/19 19:10 Problem List - Problems (1) HOLDEN (acute kidney injury) Code(s): N17.9 - ACUTE KIDNEY FAILURE, UNSPECIFIED (2) CKD (chronic kidney disease) Code(s): N18.9 - CHRONIC KIDNEY DISEASE, UNSPECIFIED (3) Anemia Code(s): D64.9 - ANEMIA, UNSPECIFIED Assessment/Plan Current Medications Generic Name Dose Route Start Last Admin Trade Name Freq PRN Reason Stop Dose Admin Acetaminophen 1,000 mg 03/17/19 21:34 03/18/19 02:26 Ofirmev Injection - IVPB 1,000 mg Q6H PRN Administration PAIN LEVEL 4 - 6 Albuterol Sulfate 1 amp 03/18/19 08:06 Ventolin 0.083% Nebulizer Soln - NEB Q6H PRN SHORT OF BREATH/WHEEZING Carvedilol 3.125 mg 03/18/19 22:00 Coreg - PO BID G[facility] Insulin Aspart 1 vial 03/16/19 22:00 03/18/19 11:29 Novolog Vial Sliding Scale - SQ 2 units ACHS [facility] Administration Protocol Melatonin 5 mg 03/18/19 22:00 Melatonin PO HS PRN INSOMNIA Morphine Sulfate 2 mg 03/17/19 21:34 03/18/19 12:49 Morphine Sulfate IVPUSH 2 mg Q4H PRN Administration PAIN LEVEL 7 - 10 Ondansetron HCl 4 mg 03/16/19 13:04 Zofran Injection IVPUSH Q6H PRN NAUSEA AND/OR VOMITING Impression 1. HOLDEN 2. hyperkalemia 3. renal mass s/p cryoablation 4. htn 5. anemia 6. prostate cancer 7. cad 8. dm 9. 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
--- NOTE | 2019-03-18 13:50 | EKG ---
Test Reason : Blood Pressure : / mmHG Vent. Rate : 064 BPM Atrial Rate : 064 BPM P-R Int : 218 ms QRS Dur : 114 ms QT Int : 446 ms P-R-T Axes : 015 -25 017 degrees QTc Int : 460 ms SINUS RHYTHM WITH 1ST DEGREE A-V BLOCK CANNOT RULE OUT SEPTAL INFARCT , AGE UNDETERMINED LEFT AXIS DEVIATION NONSPECIFIC INTRAVENTRICULAR CONDUCTION DEFECT WHEN COMPARED WITH ECG OF 18-MAR-2019 11:06, SINUS RHYTHM HAS REPLACED ATRIAL FIBRILLATION VENT. RATE HAS DECREASED BY 81 BPM QUESTIONABLE CHANGE IN QRS DURATION QUESTIONABLE CHANGE IN [employer] Confirmed by EVANGELINA PATTERSON MD ([id number]) on 03/18/2019 1:50:37 PM Referred By: LEONARDO HUTCHINSON DR Confirmed By:EVANGELINA PATTERSON MD
--- NOTE | 2019-03-18 13:55 | EKG ---
Test Reason : Blood Pressure : / mmHG Vent. Rate : 145 BPM Atrial Rate : 153 BPM P-R Int : 000 ms QRS Dur : 132 ms QT Int : 314 ms P-R-T Axes : 000 -54 077 degrees QTc Int : 487 ms POOR DATA QUALITY, INTERPRETATION MAY BE ADVERSELY AFFECTED ATRIAL FIBRILLATION WITH RAPID VENTRICULAR RESPONSE LEFT AXIS DEVIATION NON-SPECIFIC INTRA-VENTRICULAR CONDUCTION BLOCK CANNOT RULE OUT ANTEROSEPTAL INFARCT (CITED ON OR BEFORE 17-MAR-2019) ABNORMAL ECG WHEN COMPARED WITH ECG OF 17-MAR-2019 08:45, SIGNIFICANT CHANGES HAVE OCCURRED Confirmed by EVANGELINA PATTERSON MD [id number]) on 03/18/2019 1:54:48 PM Referred By: Confirmed By:EVANGELINA PATTERSON MD
--- NOTE | 2019-03-18 14:12 | EKG ---
Test Reason : Blood Pressure : / mmHG Vent. Rate : 079 BPM Atrial Rate : 079 BPM P-R Int : 184 ms QRS Dur : 106 ms QT Int : 432 ms P-R-T Axes : -02 -29 010 degrees QTc Int : 495 ms NORMAL SINUS RHYTHM POOR R WAVE PROGRESSION LEFT AXIS DEVIATION NONSPECIFIC INTRAVENTRICULAR CONDUCTION DEFECT Confirmed by EVANGELINA PATTERSON MD ([id number]) on 03/18/2019 2:12:08 PM Referred By: [facility] Confirmed By:EVANGELINA PATTERSON MD
--- NOTE | 2019-03-18 14:14 | PN ---
Physical Exam: SUBJECTIVE: Patient seen and examined at bedside. C/o left side abdominal pain most likely 2/2 retroperitoneal hematoma. Pt went into SVT that failed vagal/ valsalva maneuver as well as adenosine pushes of 6 and 12. Pt went back into sinus post amio 150 bolus, lopressor, and 40 lasix. Pt may have been overloaded leading to increased stretch of atria inducing arrythmia that pacemaker was unable to pickup and manage. OBJECTIVE: Vital Signs Period Temp Pulse Resp BP Sys/Valenzuela Pulse Ox Last 24 Hr 98.3 F-98.9 F 50-172 12-29 122-188/54-130 95-97 GENERAL: The patient is awake, alert, and fully oriented, c/o abdominal pain. HEAD: Normal with no signs of trauma. NECK: slightly edematous on left side. LUNGS: Breath sounds equal, wheezing b/l. HEART: Regular rate and rhythm, S1, S2 without murmur, rub or gallop. ABDOMEN: Soft, moderately tender in Left mid epigastrium, nondistended, normoactive bowel sounds, no guarding, no rebound. EXTREMITIES: 2+ pulses, warm, well-perfused, no edema. NEUROLOGICAL: Cranial nerves II through XII grossly intact. Normal speech, gait not observed. Pt dysarthria has resolved for the most part. PSYCH: Normal mood, normal affect. SKIN: Warm, dry, no rashes or lesions noted Laboratory Results - last 24 hr 03/17/19 03/17/19 03/17/19 10:10 17:30 20:57 WBC RBC Hgb Hct MCV MCH MCHC RDW Plt Count MPV Absolute Neuts (auto) Neutrophils % Lymphocytes % Monocytes % Eosinophils % Basophils % Nucleated RBC % Sodium 142 Potassium 5.7 H Chloride 109 H Carbon Dioxide 26 Anion Gap 7 L BUN 60.1 H Creatinine 2.8 H Est GFR (CKD-EPI)AfAm 24.47 Est GFR (CKD-EPI)NonAf 21.11 POC Glucometer 220 153 Random Glucose 273 H Calcium 8.2 L Phosphorus Magnesium 2.3 Ur Random Creatinine Ur Random Sodium Ur Random Potassium Ur Random Chloride 03/18/19 03/18/19 03/18/19 06:05 06:05 06:15 WBC 8.7 RBC 2.60 L Hgb 8.1 L Hct 23.8 L MCV 91.7 MCH 31.2 MCHC 34.0 RDW 16.1 H Plt Count 122 L D MPV 7.6 Absolute Neuts (auto) 6.7 Neutrophils % 77.2 Lymphocytes % 14.8 D Monocytes % 7.6 Eosinophils % 0.3 D Basophils % 0.1 Nucleated RBC % 0 Sodium 138 Potassium 5.1 Chloride 106 Carbon Dioxide 25 Anion Gap 7 L BUN 68.8 H Creatinine 2.8 H Est GFR (CKD-EPI)AfAm 24.47 Est GFR (CKD-EPI)NonAf 21.11 POC Glucometer 142 Random Glucose 165 H Calcium 8.0 L Phosphorus 5.2 H Magnesium 2.2 Ur Random Creatinine Ur Random Sodium Ur Random Potassium Ur Random Chloride 03/18/19 03/18/19 03/18/19 10:13 10:13 11:22 WBC RBC Hgb Hct MCV MCH MCHC RDW Plt Count MPV Absolute Neuts (auto) Neutrophils % Lymphocytes % Monocytes % Eosinophils % Basophils % Nucleated RBC % Sodium Potassium Chloride Carbon Dioxide Anion Gap BUN Creatinine Est GFR (CKD-EPI)AfAm Est GFR (CKD-EPI)NonAf POC Glucometer 192 Random Glucose Calcium Phosphorus Magnesium Ur Random Creatinine 98.0 Ur Random Sodium 28 L Ur Random Potassium 39.0 Ur Random Chloride 17 L Active Medications Generic Name Dose Route Start Last Admin Trade Name Freq PRN Reason Stop Dose Admin Acetaminophen 1,000 mg 03/17/19 21:34 03/18/19 02:26 Ofirmev Injection - IVPB 1,000 mg Q6H PRN Administration PAIN LEVEL 4 - 6 Albuterol Sulfate 1 amp 03/18/19 08:06 Ventolin 0.083% Nebulizer Soln - NEB Q6H PRN SHORT OF BREATH/WHEEZING Carvedilol 3.125 mg 03/18/19 22:00 Coreg - PO BID [facility] Insulin Aspart 1 vial 03/16/19 22:00 03/18/19 11:29 Novolog Vial Sliding Scale - SQ 2 units ACHS [facility] Administration Protocol Melatonin 5 mg 03/18/19 22:00 Melatonin PO HS PRN INSOMNIA Morphine Sulfate 2 mg 03/17/19 21:34 03/18/19 12:49 Morphine Sulfate IVPUSH 2 mg Q4H PRN Administration PAIN LEVEL 7 - 10 Ondansetron HCl 4 mg 03/16/19 13:04 Zofran Injection IVPUSH Q6H PRN NAUSEA AND/OR VOMITING ASSESSMENT/PLAN: Patient is 73M with history as stated above s/p cryoablation with retroperitoneal hematoma. Vitals signs initially stable. Hgb 9.9 to 9.2. After initial evaluation, patient became hypotensive, but responded to fluids. Neuro-> R/O CVA with negative CT - AOX3 - NIHSS 0 today. - neuro consulted (Dr. Palmer) appreciate recs. CV->Hypertensive emergency 2/2 hypervolemia/Systolic CHF/AF w prior TIA - Hgb 8.1 up from 7.7. - d/c 1/2 NS, resumed coreg - if BP drops below 130/80 can d/c coreg and start toprol XL due to its lack of effect on alpha receptor and likely to not drop BP as much. - Pt very susceptible to overload with fluids due to his severe CHF. - in sinus now -CHADS VASC 7. However holding AC for now while at risk of life-threatening bleeding. Pulmonary -> increased pulmonary congestion - Patient arousable, protecting airway - Will monitor - ordered nebs and incentive tatiana - no signs of PNA on CXR, not on any abx Renal-> Type II Cardiorenal syndrome with HOLDEN 2/2 hypovolemia from hemmorhaging/ compression via hematoma - hematoma should tamponade on its own in a few more days - pt found to be overloaded on exam/CXR today so lasix 40 given - IV 1/2 NS d/c - repleting lytes as needed. - FeNa 0.6% prerenal issue likely 2/2 Type II Cardiorenal syndrome 2/2 hematoma/ CHF lack of perfusion to kidneys inducing HOLDEN. - pt making urine today, Uro consulted (Dr. Terrell) appreciate your recommendations of severe phimosis and would benefit from circumcision once clinically stable. #FEN/GI - Lytes in AM - Soft diet Dispo: Will continue to monitor in the ICU. Thank you for this consultative opportunity. Visit type - Emergency Visit Emergency Visit: Yes ED Registration Date: 03/16/19 Care time: The patient presented to the Emergency Department on the above date and was hospitalized for further evaluation of their emergent condition. - New Patient This patient is new to me today: No - Critical Care Critical Care patient: Yes Total Critical Care Time (in minutes): 35 Critical Care Statement: The care of this patient involved high complexity decision making to prevent further life threatening deterioration of the patient 's condition and/or to evaluate & treat vital organ system(s) failure or risk of failure. - Discharge Referral Referred to [facility] No
[2019-03-18] MEDS ORDERED: TAMSULOSIN HCL 0.4 MG CAP PO ONE (17:21)
[2019-03-18] MEDS ORDERED: FUROSEMIDE 40 MG/4 ML INJECTABLE VIAL ONE (19:30)
[2019-03-18] MEDS: CARVEDILOL 3.125 MG TABLET (FP) PO SCH (21:23)
[2019-03-18] MEDS: ALBUTEROL SO4 0.083% IH SOL 2.5 MG/3 ML VIAL.NEB. NEB PRN (22:15)
[2019-03-18 22:26] LABS: ARTERIAL BLD GAS O2 SATURATION 95.4 % (95-98); ARTERIAL BLOOD GAS BASE EXCESS -2.4 meq/l (-2-2); ARTERIAL BLOOD GAS PO2 76.9 mmHg (80-100); ARTERIAL BLOOD GAS pH 7.33 (7.35-7.45)
[2019-03-18 22:33] LABS: ALLENS TEST POSITIVE
[2019-03-18] MEDS ORDERED: hydrALAZINE HCL 20 MG/ML VIAL IVPUSH ONE (23:05)
[2019-03-18] MEDS: MELATONIN 5 MG TABLETS PO PRN (23:46)
[2019-03-19] MEDS ORDERED: FUROSEMIDE 40 MG/4 ML INJECTABLE VIAL IVPUSH ONE (00:32)
[2019-03-19] MEDS: MORPHINE SULFATE 2 MG/ML VIAL IVPUSH PRN (00:33)
--- NOTE | 2019-03-19 07:00 | PN ---
Progress Note, Physician Chief Complaint: Seen and examined in ICU around 5pm last night, he developed long runs of wide complex tachycardia c/w VT (was not called for this). Was given Lopressor 5mg IV x 1, with termination. Pt denied CP at the time but stated he was SOB. This AM appears comfortable, Denies CP at this time. History of Present Illness: Weight is down 1 lb, received additional dose of IV Lasix. - Current Medication List Current Medications: Active Medications Acetaminophen (Ofirmev Injection -) 1,000 mg IVPB Q6H PRN PRN Reason: PAIN LEVEL 4 - 6 Last Admin: 03/18/19 23:46 Dose: 1,000 mg Albuterol Sulfate (Ventolin 0.083% Nebulizer Soln -) 1 amp NEB Q6H PRN PRN Reason: SHORT OF BREATH/WHEEZING Last Admin: 03/18/19 22:15 Dose: 1 amp Carvedilol (Coreg -) 3.125 mg PO BID [facility] Last Admin: 03/18/19 21:23 Dose: 3.125 mg Insulin Aspart (Novolog Vial Sliding Scale -) 1 vial SQ [facility]; Protocol Last Admin: 03/18/19 23:05 Dose: 2 units Melatonin (Melatonin) 5 mg PO HS PRN PRN Reason: INSOMNIA Last Admin: 03/18/19 23:46 Dose: 5 mg Morphine Sulfate (Morphine Sulfate) 2 mg IVPUSH Q4H PRN PRN Reason: PAIN LEVEL 7 - 10 Last Admin: 03/19/19 00:33 Dose: 2 mg Ondansetron HCl (Zofran Injection) 4 mg IVPUSH Q6H PRN PRN Reason: NAUSEA AND/OR VOMITING Tamsulosin HCl (Flomax -) 0.8 mg PO DAILY@0830 [facility] - Objective Vital Signs: Vital Signs Temperature 98.3 F 03/19/19 04:00 Pulse Rate 85 03/19/19 06:00 Respiratory Rate 18 03/19/19 06:00 Blood Pressure 157/84 03/19/19 06:00 O2 Sat by Pulse Oximetry (%) 95 03/18/19 23:00 Constitutional: Yes: Calm Cardiovascular: Yes: Regular Rate and Rhythm Respiratory: Yes: Other (rales at left base) Gastrointestinal: Yes: Soft (NT) Edema: No (venodynes) Neurological: Yes: Alert, Oriented Labs: CBC, BMP 03/18/19 06:05 03/18/19 06:05 INR, PTT INR 1.13 (0.83-1.09) H 03/16/19 19:10 Laboratory Tests 03/16/19 03/18/19 03/18/19 08:25 06:05 06:05 WBC 8.7 Hgb 8.1 L Plt Count 122 L D Sodium 138 Potassium 5.1 BUN Creatinine 1.8 H 2.8 H Magnesium 03/19/19 03/19/19 07:16 07:16 WBC 10.4 H Hgb 8.9 L Plt Count 140 Sodium 140 Potassium 4.6 BUN 70.6 H Creatinine 2.4 H Magnesium 2.4 - ....Imaging EKG: Image Reviewed Assessment/Plan IMP/PLAN: Renal mass ablation c/b retroperitoneal bleed: -treatment per IR, critical care, follow H/H -holding NOAC and not on anti-PLT meds -transfuse prn H/H trend HOLDEN on CKD: -baseline renal fxn unknown -worsening here -per crit care, renal. -suspect acute blood loss with ATN NICM w/ chronic syst CHF: -h/o primary prevn ICD, now with long runs of VT (K and Mg WNL) -slightly volume overloaded yesterday. IVF d/c'd, given Lasix with improvement in dyspnea -not on COYR/ARB per home med list provided by pt (presumably due to CKD) -Carvedilol resumed, will add Amio gtts to prevent further episodes of sustained VT and LIGIA which may lead to hemodynamic compromise, d/w EP and strips reviewed w/ Dr. Thompson. -Keep K+ 4; Mg2+ 2 -Now with long runs VT. Will transfer patient to CCU at [facility] for EP evaluation and further management. Case d/w CCU attending at [facility] Dr. Bull Magdaleno. He has accepted pt for transfer. He expects a CCU bed to open up today. h/o Afib with prior TIAs: episode of LIGIA yesterday, sx, requiring Amio bolus for termination. -in sinus here -CHADS VASC 7. no choice but to hold AC for now while at risk of life- threatening bleeding -Cont Coreg slurred speech, mild facial droop, vision changes: -subtle sx's -not a candidate for AC, t-PA or likely invasive clot removal in any event -CT neg -Neuro eval planned PPM/ICD: -tele monitoring here
[2019-03-19] MEDS: INSULIN SLIDING SCALE (NOVOLOG) 1 VIAL SQ SCH ×4 (07:32→21:23)
[2019-03-19 07:52] LABS: HEMOGLOBIN 8.9 GM/dL (11.7-16.9); MCH 31.2 pg (25.7-33.7); MCHC 34.1 g/dl (32.0-35.9); MEAN CELL VOLUME 91.4 fl (80-96); MEAN PLT VOLUME 7.7 fl (7.5-11.1); PLATELET COUNT 140 K/MM3 (134-434); RBC 2.84 M/mm3 (4.00-5.60); RDW 16.2 % (11.9-15.9); WHITE BLOOD COUNT 10.4 K/mm3 (4.0-10.0)
[2019-03-19] MEDS ORDERED: AMIODARONE IN DEXTROSE,ISO-OSM 360 MG/200 ML BAG IVPB SCH (08:00)
[2019-03-19 08:14] LABS: ALBUMIN 3.2 g/dl (3.4-5.0); BILIRUBIN,TOTAL 0.6 mg/dL (0.2-1); BLOOD UREA NITROGEN 70.6 mg/dL (7-18); CALCIUM 8.5 mg/dL (8.5-10.1); CREATININE 2.4 mg/dL (0.55-1.3); MAGNESIUM 2.4 mg/dL (1.8-2.4); PHOSPHOROUS 4.7 mg/dL (2.5-4.9); POTASSIUM 4.6 mmol/L (3.5-5.1); TOT PROT 6.3 g/dl (6.4-8.2)
--- NOTE | 2019-03-19 08:46 | PN ---
Progress Note (short form) - Note Progress Note: Renal Coverage for Dr. Haq Seen and examined in the ICU awake and alert offers no acute complaints making urine Vital Signs Temperature 98.3 F 03/19/19 04:00 Pulse Rate 85 03/19/19 06:00 Respiratory Rate 18 03/19/19 06:00 Blood Pressure 157/84 03/19/19 06:00 O2 Sat by Pulse Oximetry (%) 95 03/18/19 23:00 Intake & Output 03/16/19 03/17/19 03/18/19 03/19/19 23:59 23:59 23:59 23:59 Intake Total 1600 2462 1310 200 Output Total 0 2300 700 Balance 1600 2462 -990 -500 Weight 113.398 kg 120.9 kg 121.563 kg 121.4 kg NAD awake and alert irregular HR, no M/R Dec BS no rales no LE edema CBC, BMP 03/19/19 07:16 03/19/19 07:16 Laboratory Tests 03/19/19 07:16 Calcium 8.5 Phosphorus 4.7 Magnesium 2.4 Albumin 3.2 L Current Medications Acetaminophen (Ofirmev Injection -) 1,000 mg IVPB Q6H PRN PRN Reason: PAIN LEVEL 4 - 6 Last Admin: 03/18/19 23:46 Dose: 1,000 mg Albuterol Sulfate (Ventolin 0.083% Nebulizer Soln -) 1 amp NEB Q6H PRN PRN Reason: SHORT OF BREATH/WHEEZING Last Admin: 03/18/19 22:15 Dose: 1 amp Carvedilol (Coreg -) 3.125 mg PO BID [facility] Last Admin: 03/18/19 21:23 Dose: 3.125 mg Amiodarone HCl/Dextrose (Nexterone 360 Mg/200 Ml Bag) 360 mg in 200 mls @ 16.667 mls/hr IVPB ASDIR [facility]; Protocol Last Admin: 03/19/19 08:08 Dose: 16.667 mls/hr Insulin Aspart (Novolog Vial Sliding Scale -) 1 vial SQ ACHS [facility]; Protocol Last Admin: 03/19/19 07:32 Dose: Not Given Melatonin (Melatonin) 5 mg PO HS PRN PRN Reason: INSOMNIA Last Admin: 03/18/19 23:46 Dose: 5 mg Morphine Sulfate (Morphine Sulfate) 2 mg IVPUSH Q4H PRN PRN Reason: PAIN LEVEL 7 - 10 Last Admin: 03/19/19 00:33 Dose: 2 mg Ondansetron HCl (Zofran Injection) 4 mg IVPUSH Q6H PRN PRN Reason: NAUSEA AND/OR VOMITING Tamsulosin HCl (Flomax -) 0.8 mg PO DAILY@0830 [facility] Impression 1. HOLDEN 2. hyperkalemia 3. renal mass s/p cryoablation 4. htn 5. anemia 6. prostate cancer 7. cad 8. dm 9. retroperitoneal bleed Plan Renal function starting to improve at this time. Pt is non-oliguric and has no overt electrolyte or acid/base disturbacne to warrant dialysis. Maintain MAP > 65 supportive care Avoid CORY/ARB, NSIADs and other nephrotoxins Trend renal function and electrolytes daily Umair Nunez DO
[2019-03-19] MEDS: CARVEDILOL 3.125 MG TABLET (FP) PO SCH ×2 (09:11→21:17)
[2019-03-19] MEDS: TAMSULOSIN HCL 0.4 MG CAP PO SCH (09:11)
--- NOTE | 2019-03-19 09:17 | PN ---
Progress Note (short form) - Note Progress Note: Patient is comfortable with no acute distress. c/o having mild left abdominal pain. Vital Signs Temperature 98.3 F 03/19/19 04:00 Pulse Rate 85 03/19/19 06:00 Respiratory Rate 18 03/19/19 06:00 Blood Pressure 157/84 03/19/19 06:00 O2 Sat by Pulse Oximetry (%) 95 03/19/19 08:48 GENERAL: The patient is awake, alert, and fully oriented, in no acute distress. HEAD: Normal with no signs of trauma. EYES: PERRL, extraocular movements intact, sclera anicteric, conjunctiva clear. ENT: Ears normal, oropharynx clear without exudates, moist mucous membranes. NECK: Trachea midline, full range of motion, supple. LUNGS: Breath sounds equal, clear to auscultation bilaterally, no wheezes, no crackles, no accessory muscle use. HEART: Regular rate and rhythm, S1, S2 without murmur, rub or gallop. ABDOMEN: Soft, mildly distended, left abdominal pain on palpation, BS positive. no guarding EXTREMITIES: 2+ pulses, warm, well-perfused, no edema. NEUROLOGICAL: Cranial nerves II through XII grossly intact. Normal speech, gait not observed. PSYCH: Normal mood, normal affect. SKIN: Warm, dry, normal turgor, no rashes or lesions noted CBCD WBC 10.4 K/mm3 (4.0-10.0) H 03/19/19 07:16 RBC 2.84 M/mm3 (4.00-5.60) L 03/19/19 07:16 Hgb 8.9 GM/dL (11.7-16.9) L 03/19/19 07:16 Hct 26.0 % (35.4-49) L 03/19/19 07:16 MCV 91.4 fl (80-96) 03/19/19 07:16 MCHC 34.1 g/dl (32.0-35.9) 03/19/19 07:16 RDW 16.2 % (11.9-15.9) H 03/19/19 07:16 Plt Count 140 K/MM3 (134-434) 03/19/19 07:16 MPV 7.7 fl (7.5-11.1) 03/19/19 07:16 CMP Sodium 140 mmol/L (136-145) 03/19/19 07:16 Potassium 4.6 mmol/L (3.5-5.1) 03/19/19 07:16 Chloride 105 mmol/L (98-107) 03/19/19 07:16 Carbon Dioxide 26 mmol/L (21-32) 03/19/19 07:16 Anion Gap 9 MMOL/L (8-16) 03/19/19 07:16 BUN 70.6 mg/dL (7-18) H 03/19/19 07:16 Creatinine 2.4 mg/dL (0.55-1.3) H 03/19/19 07:16 Random Glucose 182 mg/dL (74-106) H 03/19/19 07:16 Calcium 8.5 mg/dL (8.5-10.1) 03/19/19 07:16 Total Bilirubin 0.6 mg/dL (0.2-1) 03/19/19 07:16 AST 37 U/L (15-37) 03/19/19 07:16 ALT 19 U/L (13-61) 03/19/19 07:16 Alkaline Phosphatase 84 U/L (45-117) 03/19/19 07:16 Total Protein 6.3 g/dl (6.4-8.2) L 03/19/19 07:16 Albumin 3.2 g/dl (3.4-5.0) L 03/19/19 07:16 Current Medications Generic Name Dose Route Start Last Admin Trade Name Freq PRN Reason Stop Dose Admin Acetaminophen 1,000 mg 03/17/19 21:34 03/18/19 23:46 Ofirmev Injection - IVPB 1,000 mg Q6H PRN Administration PAIN LEVEL 4 - 6 Albuterol Sulfate 1 amp 03/18/19 08:06 03/18/19 22:15 Ventolin 0.083% Nebulizer Soln - NEB 1 amp Q6H PRN Administration SHORT OF BREATH/WHEEZING Carvedilol 3.125 mg 03/18/19 22:00 03/19/19 09:11 Coreg - PO 3.125 mg BID [facility] Administration Amiodarone HCl/Dextrose 360 mg in 200 mls @ 16.667 mls/hr 03/19/19 08:00 08:08 Nexterone 360 Mg/200 Ml Bag IVPB 16.667 mls/hr ASDIR [facility] Administration Protocol 0.5 MG/MIN Insulin Aspart 1 vial 03/16/19 22:00 03/19/19 07:32 Novolog Vial Sliding Scale - SQ Not Given ACHS [facility] Protocol Melatonin 5 mg 03/18/19 22:00 03/18/19 23:46 Melatonin PO 5 mg HS PRN Administration INSOMNIA Morphine Sulfate 2 mg 03/17/19 21:34 03/19/19 00:33 Morphine Sulfate IVPUSH 2 mg Q4H PRN Administration PAIN LEVEL 7 - 10 Ondansetron HCl 4 mg 03/16/19 13:04 Zofran Injection IVPUSH Q6H PRN NAUSEA AND/OR VOMITING Tamsulosin HCl 0.8 mg 03/19/19 08:30 03/19/19 09:11 Flomax - PO 0.8 mg DAILY@0830 [facility] Administration Home Medications Medication Instructions Recorded Acetaminophen 325 mg PO PRN PRN 03/15/19 Allopurinol [Zyloprim -] 100 mg PO DAILY 03/15/19 Carvedilol 3.125 mg PO BID 03/15/19 Clotrimazole [Lotrimin 1% Cream -] 1 applic TP DAILY 03/15/19 Furosemide 40 mg PO BID 03/15/19 Gabapentin 600 mg PO TID 03/15/19 Glimepiride 4 mg PO DAILY 03/15/19 Insulin (Novolog) [Novolog -] 11 units PO BID 03/15/19 Insulin Detemir [Levemir Flextouch] 44 unit SQ DAILY 03/15/19 Linagliptin [Tradjenta] 5 mg PO DAILY 03/15/19 Lipase/Protease/Amylase [Creon Dr 1 each PO TID 03/15/19 3,000 Units Capsule] Loperamide HCl [Loperamide] 2 mg PO BID 03/15/19 Nystatin [Nyamyc] 100 gm TP DAILY PRN 03/15/19 Rivaroxaban [Xarelto -] 20 mg PO DAILY 03/15/19 Sertraline HCl 150 mg PO DAILY 03/15/19 Simvastatin 5 mg PO DAILY 03/15/19 Tamsulosin HCl [Flomax] 0.8 mg PO DAILY 03/15/19 Laboratory Tests 03/16/19 03/16/19 03/16/19 07:42 07:42 08:25 Hgb 9.8 L RDW 16.0 H PT with INR 12.20 INR 1.03 BUN 46.6 H Creatinine 1.8 H 03/16/19 03/16/19 03/17/19 14:55 19:10 05:05 Hgb 9.2 L RDW 15.7 PT with INR INR BUN Creatinine 2.1 H 2.5 H 03/17/19 03/18/19 03/19/19 10:10 06:05 07:16 Hgb RDW PT with INR INR BUN Creatinine 2.8 H 2.8 H 2.4 H Intake & Output 03/16/19 03/17/19 03/18/19 03/19/19 23:59 23:59 23:59 23:59 Intake Total 1600 2462 1310 200 Output Total 0 2300 700 Balance 1600 2462 990 -500 Weight 113.398 kg 120.9 kg 121.563 kg 121.4 kg Laboratory Tests 03/16/19 03/16/19 03/16/19 07:42 07:42 08:25 Hgb 9.8 L RDW 16.0 H PT with INR 12.20 INR 1.03 BUN 46.6 H Creatinine 1.8 H 03/16/19 03/16/19 03/16/19 14:55 19:00 19:10 Hgb 9.2 L 7.7 L RDW 15.7 PT with INR INR BUN Creatinine 2.1 H 03/17/19 03/17/19 03/17/19 05:05 05:05 10:10 Hgb 9.5 L RDW PT with INR INR BUN Creatinine 2.5 H 2.8 H 03/17/19 03/18/19 03/18/19 12:05 06:05 06:05 Hgb 8.7 L 8.1 L RDW PT with INR INR BUN Creatinine 2.8 H 03/19/19 03/19/19 07:16 07:16 Hgb 8.9 L RDW PT with INR INR BUN Creatinine 2.4 H Intake & Output 03/16/19 03/17/19 03/18/19 03/19/19 23:59 23:59 23:59 23:59 Intake Total 1600 2462 1310 200 Output Total 0 2300 1700 Balance 1600 2462 -990 -1500 Weight 113.398 kg 120.9 kg 121[address] abdomen and pelvis without contrast: Large solid left lower pole renal mass strongly suspecoius for a renal cell carcinoma. right renal cyst, no evidence of metastatic disease or acute pathology within the abdomen or pelvis. ASSESSMENT AND PLAN: Patient is a 73yo male with PMHx of CAD, prostate Ca, b/l kidney mass, HTN, and DM, s/p cryoablation and renal biopsy of L kidney mass, suspicious of tumor (RCC) # POD#2 , Retropereatineal Bleed s/p cryoablation of left kidney due to a kidney mass. s/p transfusion of 2 units prbc and one unit of FFP, transfuse if hgb drops below 8.0. # acute blood loss with hemoglobin drop s/p 2 units of PRBC and one unit of FFP # NICM w/ chronic syst CHF:with hx of ICD/PPM, having runs of VTAc , mag and potassium within nl, not on CORY/ARB per home med list provided by pt (presumably due to CKD), lasix prn , continue coreg. As per cardio would like to add Amio gtts to prevent further episodes of sustained VT and LIGIA which may lead to hemodynamic compromise. discussed with EP and strips were reviewed w/ Dr. Thompson. Keep K+ 4; Mg2+ 2 -Now with long runs VT. , patient is being transferred to CCU at tertiary care center for EP evaluation and further management.Accepting MD at [facility] Dr. Bull Magdaleno. #Afib with rate controlled with CHADS VASC 7. cannot AC since patient has life- threatening bleeding, Cont Coreg. # ARF: 2.8 cr-->2.4 today and urinating well , nephro consult appreciated. # Hx of PPM and defibrilator . # Hx of CAD/Prostate Ca # Hx of T2DM on ss with coverage # Hx of HtN: continue to monitor DVT Px: SCds Tx the patient to CCU at [facility] once bed opens up. Visit type - Emergency Visit Emergency Visit: Yes ED Registration Date: 03/16/19 Care time: The patient presented to the Emergency Department on the above date and was hospitalized for further evaluation of their emergent condition. - New Patient This patient is new to me today: No - Critical Care Critical Care patient: Yes Total Critical Care Time (in minutes): 35 Critical Care Statement: The care of this patient involved high complexity decision making to prevent further life threatening deterioration of the patient 's condition and/or to evaluate & treat vital organ system(s) failure or risk of failure. - Discharge Referral Referred to [facility] No
--- NOTE | 2019-03-19 10:00 | PN ---
Physical Exam: SUBJECTIVE: Patient seen and examined in ICU. Had run of SVT vs VTach yesterday evening that was broken with 5 mg of IV metoprolol. Cardiology evaluated patient this morning, concern for extended run of VTach, started amio drip and will likely transfer. Patient has no complaints of shortness of breath or chest pain. Patient states his pain is improving. OBJECTIVE: Vital Signs Period Temp Pulse Resp BP Sys/Valenzuela Pulse Ox Last 24 Hr 98.1 F-98.3 F 50-172 16-30 122-196/59-130 93-95 GENERAL: The patient is awake, alert, and fully oriented, in no acute distress. HEAD: Normal with no signs of trauma. EYES: PERRL, extraocular movements intact, sclera anicteric, conjunctiva clear. ENT: Ears normal, nares patent, oropharynx clear without exudates, moist mucous membranes. NECK: Trachea midline, full range of motion, supple. LUNGS: Breath sounds equal, clear to auscultation bilaterally HEART: Regular rate and rhythm, S1, S2 without murmur, rub or gallop. ABDOMEN: Soft, nontender, nondistended EXTREMITIES: 2+ pulses, warm, well-perfused, decreased edema. NEUROLOGICAL: Cranial nerves II through XII grossly intact. Normal speech, moves all 4 extremities PSYCH: Normal mood, normal affect. SKIN: Warm, dry, normal turgor, no rashes or lesions noted Laboratory Results - last 24 hr 03/18/19 03/18/19 03/18/19 10:13 10:13 11:22 WBC RBC Hgb Hct MCV MCH MCHC RDW Plt Count MPV Anticoagulation Therapy Puncture Site ABG pH ABG pCO2 at Pt Temp ABG pO2 at Pt Temp ABG HCO3 ABG O2 Sat (Measured) ABG O2 Content ABG Base Excess Severino Test O2 Delivery Device Oxygen Flow Rate Vent Mode Vent Rate Mechanical Rate Pressure Support Vent Sodium Potassium Chloride Carbon Dioxide Anion Gap BUN Creatinine Est GFR (CKD-EPI)AfAm Est GFR (CKD-EPI)NonAf POC Glucometer 192 Random Glucose Calcium Phosphorus Magnesium Total Bilirubin AST ALT Alkaline Phosphatase Total Protein Albumin Ur Random Creatinine 98.0 Ur Random Sodium 28 L Ur Random Potassium 39.0 Ur Random Chloride 17 L 03/18/19 03/18/19 03/19/19 21:26 22:07 07:10 WBC RBC Hgb Hct MCV MCH MCHC RDW Plt Count MPV Anticoagulation Therapy No Result Required. Puncture Site Right radial ABG pH 7.33 L ABG pCO2 at Pt Temp 45.0 ABG pO2 at Pt Temp 76.9 L ABG HCO3 22.9 ABG O2 Sat (Measured) 95.4 ABG O2 Content 11.1 ABG Base Excess -2.4 L Severino Test Positive O2 Delivery Device Nasal Oxygen Flow Rate Yes Vent Mode No Result Required. Vent Rate No Result Required. Mechanical Rate No Result Required. Pressure Support Vent No Result Required. Sodium Potassium Chloride Carbon Dioxide Anion Gap BUN Creatinine Est GFR (CKD-EPI)AfAm Est GFR (CKD-EPI)NonAf POC Glucometer 203 173 Random Glucose Calcium Phosphorus Magnesium Total Bilirubin AST ALT Alkaline Phosphatase Total Protein Albumin Ur Random Creatinine Ur Random Sodium Ur Random Potassium Ur Random Chloride 03/19/19 03/19/19 07:16 07:16 WBC 10.4 H RBC 2.84 L Hgb 8.9 L Hct 26.0 L MCV 91.4 MCH 31.2 MCHC 34.1 RDW 16.2 H Plt Count 140 MPV 7.7 Anticoagulation Therapy Puncture Site ABG pH ABG pCO2 at Pt Temp ABG pO2 at Pt Temp ABG HCO3 ABG O2 Sat (Measured) ABG O2 Content ABG Base Excess Severino Test O2 Delivery Device Oxygen Flow Rate Vent Mode Vent Rate Mechanical Rate Pressure Support Vent Sodium 140 Potassium 4.6 Chloride 105 Carbon Dioxide 26 Anion Gap 9 BUN 70.6 H Creatinine 2.4 H Est GFR (CKD-EPI)AfAm 29.48 Est GFR (CKD-EPI)NonAf 25.43 POC Glucometer Random Glucose 182 H Calcium 8.5 Phosphorus 4.7 Magnesium 2.4 Total Bilirubin 0.6 AST 37 ALT 19 Alkaline Phosphatase 84 Total Protein 6.3 L Albumin 3.2 L Ur Random Creatinine Ur Random Sodium Ur Random Potassium Ur Random Chloride Active Medications Generic Name Dose Route Start Last Admin Trade Name Freq PRN Reason Stop Dose Admin Acetaminophen 1,000 mg 03/17/19 21:34 03/18/19 23:46 Ofirmev Injection - IVPB 1,000 mg Q6H PRN Administration PAIN LEVEL 4 - 6 Albuterol Sulfate 1 amp 03/18/19 08:06 03/18/19 22:15 Ventolin 0.083% Nebulizer Soln - NEB 1 amp Q6H PRN Administration SHORT OF BREATH/WHEEZING Carvedilol 3.125 mg 03/18/19 22:00 03/19/19 09:11 Coreg - PO 3.125 mg BID GARRET Administration Amiodarone HCl/Dextrose 360 mg in 200 mls @ 16.667 mls/hr 03/19/19 08:00 08:08 Nexterone 360 Mg/200 Ml Bag IVPB 16.667 mls/hr ASDIR GARRET Administration Protocol 0.5 MG/MIN Insulin Aspart 1 vial 03/16/19 22:00 03/19/19 07:32 Novolog Vial Sliding Scale - SQ Not Given ACHS GARRET Protocol Melatonin 5 mg 03/18/19 22:00 03/18/19 23:46 Melatonin PO 5 mg HS PRN Administration INSOMNIA Morphine Sulfate 2 mg 03/17/19 21:34 03/19/19 00:33 Morphine Sulfate IVPUSH 2 mg Q4H PRN Administration PAIN LEVEL 7 - 10 Ondansetron HCl 4 mg 03/16/19 13:04 Zofran Injection IVPUSH Q6H PRN NAUSEA AND/OR VOMITING Tamsulosin HCl 0.8 mg 03/19/19 08:30 03/19/19 09:11 Flomax - PO 0.8 mg DAILY@0830 GARRET Administration ASSESSMENT/PLAN: Patient is 73M with history as stated above s/p cryoablation with retroperitoneal hematoma. Vitals signs initially stable. After initial evaluation, patient became hypotensive, but responded to fluids. Neuro-> R/O CVA with negative CT - AOX3 - NIHSS 0 today. - neuro consulted (Dr. Palmer) appreciate recs. CV-> VTach and CHF exacerbation - Hgb improved to 8.9. - Pt very susceptible to overload with fluids due to his severe CHF. - in sinus now - Given lasix 20mg x2, cxr stable today - Started on amio drip - Likely transfer - CHADS VASC 7. However holding AC for now while at risk of life-threatening bleeding. Pulmonary -> increased pulmonary congestion - Trialed on bipap, not tolerated - Will monitor - ordered nebs and incentive tatiana - no signs of PNA on CXR, not on any abx Renal-> Type II Cardiorenal syndrome with HOLDEN 2/2 hypovolemia from hemmorhaging/ compression via hematoma - repleting lytes as needed. - Cr improving - FeNa 0.6% prerenal issue likely 2/2 Type II Cardiorenal syndrome 2/2 hematoma/ CHF lack of perfusion to kidneys inducing HOLDEN. - pt making urine today, Uro consulted (Dr. Terrell) appreciate your recommendations of severe phimosis and would benefit from circumcision once clinically stable. #FEN/GI - Lytes in AM - Soft diet Dispo: Likely transfer to [facility] for arrhythmia evaluation and possible ablation Visit type - Emergency Visit Emergency Visit: Yes ED Registration Date: 03/16/19 Care time: The patient presented to the Emergency Department on the above date and was hospitalized for further evaluation of their emergent condition. - New Patient This patient is new to me today: No - Critical Care Critical Care patient: Yes Total Critical Care Time (in minutes): 40 Critical Care Statement: The care of this patient involved high complexity decision making to prevent further life threatening deterioration of the patient 's condition and/or to evaluate & treat vital organ system(s) failure or risk of failure. ATTENDING PHYSICIAN STATEMENT I saw and evaluated the patient. I reviewed the resident's note and discussed the case with the resident. I agree with the resident's findings and plan as documented. SUBJECTIVE: OBJECTIVE: ASSESSMENT AND PLAN:
--- NOTE | 2019-03-19 10:03 | PN ---
Teaching Attending Note Name of Resident: Dano Alvarado ATTENDING PHYSICIAN STATEMENT I saw and evaluated the patient. I reviewed the resident's note and discussed the case with the resident. I agree with the resident's findings and plan as documented. SUBJECTIVE: Patient seen and examined in the ICU. Awake and alert. Repeat episodes of SVT overnight. Less tachypneic today. Seen by Cardiology this AM. No CP. Intake & Output 03/16/19 03/17/19 03/18/19 03/19/19 23:59 23:59 23:59 23:59 Intake Total 1600 2462 1310 200 Output Total 0 2300 700 Balance 1600 2462 -990 -500 Weight 250 lb 266 lb 8.622 oz 268 lb 267 lb 10.259 oz Last Vital Signs Temp Pulse Resp BP Pulse Ox 98.3 F 85 18 157/84 95 03/19/19 04:00 03/19/19 06:00 03/19/19 06:00 03/19/19 06:00 03/19/19 08:48 Active Medications Acetaminophen (Ofirmev Injection -) 1,000 mg IVPB Q6H PRN PRN Reason: PAIN LEVEL 4 - 6 Last Admin: 03/18/19 23:46 Dose: 1,000 mg Albuterol Sulfate (Ventolin 0.083% Nebulizer Soln -) 1 amp NEB Q6H PRN PRN Reason: SHORT OF BREATH/WHEEZING Last Admin: 03/18/19 22:15 Dose: 1 amp Carvedilol (Coreg -) 3.125 mg PO BID GARRET Last Admin: 03/19/19 09:11 Dose: 3.125 mg Amiodarone HCl/Dextrose (Nexterone 360 Mg/200 Ml Bag) 360 mg in 200 mls @ 16.667 mls/hr IVPB ASDIR GARRET; Protocol Last Admin: 03/19/19 08:08 Dose: 16.667 mls/hr Insulin Aspart (Novolog Vial Sliding Scale -) 1 vial SQ ACHS [facility]; Protocol Last Admin: 03/19/19 07:32 Dose: Not Given Melatonin (Melatonin) 5 mg PO HS PRN PRN Reason: INSOMNIA Last Admin: 03/18/19 23:46 Dose: 5 mg Morphine Sulfate (Morphine Sulfate) 2 mg IVPUSH Q4H PRN PRN Reason: PAIN LEVEL 7 - 10 Last Admin: 03/19/19 00:33 Dose: 2 mg Ondansetron HCl (Zofran Injection) 4 mg IVPUSH Q6H PRN PRN Reason: NAUSEA AND/OR VOMITING Tamsulosin HCl (Flomax -) 0.8 mg PO DAILY@0830 GARRET Last Admin: 03/19/19 09:11 Dose: 0.8 mg GENERAL: Awake, alert, generalized malaise HEAD: Normal with no signs of trauma. EYES: Pupils equal, round and reactive to light, extraocular movements intact, sclera anicteric, conjunctiva clear. EARS, NOSE, THROAT: Ears normal, nares patent, oropharynx clear without exudates. Moist mucous membranes. NECK: Normal range of motion, supple without lymphadenopathy, JVD, or masses. LUNGS: bibasilar rales, tachypneic, (+) accessory muscle use. HEART: Regular rate and rhythm, normal S1 and S2 without murmur, rub or gallop. ABDOMEN: Soft, (+) mild tenderness at the biopsy site, no fluid collection, (+) BS, not distended, no guarding, no rebound, no masses. MUSCULOSKELETAL: Normal range of motion at all joints. No bony deformities or tenderness. UPPER EXTREMITIES: 2+ pulses, warm, well-perfused. No cyanosis. No clubbing. Cap refill <2 seconds. No peripheral edema. LOWER EXTREMITIES: 2+ pulses, warm, well-perfused. No calf tenderness. No peripheral edema. NEUROLOGICAL: Non-focal PSYCHIATRIC: Cooperative. Good eye contact. Appropriate mood and affect. SKIN: Warm, dry, normal turgor, no rashes or lesions noted. Laboratory Results - last 24 hr 03/18/19 03/18/19 03/18/19 10:13 10:13 11:22 WBC RBC Hgb Hct MCV MCH MCHC RDW Plt Count MPV Anticoagulation Therapy Puncture Site ABG pH ABG pCO2 at Pt Temp ABG pO2 at Pt Temp ABG HCO3 ABG O2 Sat (Measured) ABG O2 Content ABG Base Excess Severino Test O2 Delivery Device Oxygen Flow Rate Vent Mode Vent Rate Mechanical Rate Pressure Support Vent Sodium Potassium Chloride Carbon Dioxide Anion Gap BUN Creatinine Est GFR (CKD-EPI)AfAm Est GFR (CKD-EPI)NonAf POC Glucometer 192 Random Glucose Calcium Phosphorus Magnesium Total Bilirubin AST ALT Alkaline Phosphatase Total Protein Albumin Ur Random Creatinine 98.0 Ur Random Sodium 28 L Ur Random Potassium 39.0 Ur Random Chloride 17 L 03/18/19 03/18/19 03/19/19 21:26 22:07 07:10 WBC RBC Hgb Hct MCV MCH MCHC RDW Plt Count MPV Anticoagulation Therapy No Result Required. Puncture Site Right radial ABG pH 7.33 L ABG pCO2 at Pt Temp 45.0 ABG pO2 at Pt Temp 76.9 L ABG HCO3 22.9 ABG O2 Sat (Measured) 95.4 ABG O2 Content 11.1 ABG Base Excess -2.4 L Severino Test Positive O2 Delivery Device Nasal Oxygen Flow Rate Yes Vent Mode No Result Required. Vent Rate No Result Required. Mechanical Rate No Result Required. Pressure Support Vent No Result Required. Sodium Potassium Chloride Carbon Dioxide Anion Gap BUN Creatinine Est GFR (CKD-EPI)AfAm Est GFR (CKD-EPI)NonAf POC Glucometer 203 173 Random Glucose Calcium Phosphorus Magnesium Total Bilirubin AST ALT Alkaline Phosphatase Total Protein Albumin Ur Random Creatinine Ur Random Sodium Ur Random Potassium Ur Random Chloride 03/19/19 03/19/19 07:16 07:16 WBC 10.4 H RBC 2.84 L Hgb 8.9 L Hct 26.0 L MCV 91.4 MCH 31.2 MCHC 34.1 RDW 16.2 H Plt Count 140 MPV 7.7 Anticoagulation Therapy Puncture Site ABG pH ABG pCO2 at Pt Temp ABG pO2 at Pt Temp ABG HCO3 ABG O2 Sat (Measured) ABG O2 Content ABG Base Excess Severino Test O2 Delivery Device Oxygen Flow Rate Vent Mode Vent Rate Mechanical Rate Pressure Support Vent Sodium 140 Potassium 4.6 Chloride 105 Carbon Dioxide 26 Anion Gap 9 BUN 70.6 H Creatinine 2.4 H Est GFR (CKD-EPI)AfAm 29.48 Est GFR (CKD-EPI)NonAf 25.43 POC Glucometer Random Glucose 182 H Calcium 8.5 Phosphorus 4.7 Magnesium 2.4 Total Bilirubin 0.6 AST 37 ALT 19 Alkaline Phosphatase 84 Total Protein 6.3 L Albumin 3.2 L Ur Random Creatinine Ur Random Sodium Ur Random Potassium Ur Random Chloride ASSESSMENT/PLAN: POD #2: Cryoablation & Renal biopsy Aflutter / SVT Retroperitoneal hematoma Resolving hypotension PPM CAD Prostate CA Bilateral kidney masses HTN Cardiology will arrange for transfer to [facility] Monitor H & H Normal transfusion threshold: 8 gm/dL O2 as needed Xarelto on hold PO as tolerated Mechanical VTE prophylaxis Glycemic control ICU monitoring until transfer Dr Gonzalez Critical care time spent in reviewing chart, evaluating patient and formulating plan - 36 minutes.
--- NOTE | 2019-03-19 14:33 | CONSULT ---
Consult - text type - Consultation Consultation Note: NEUROLOGY CONSULTATION is greatlt appreciated: This 73 yo RH div man is currently in "independent" living. PMH of HTN, DM, Chol, Prostatic CA and more recently, B/L Renal masses with biopsy c/w Renal cell CA. S/P Cryoablation complicated by retroperitoneal bleeding and SVT which has been recurrent in the ICU with planned transfer to [facility]. Known to me from prior w/u of gait dysfunction yielding Diabetic Peripheral neuropathy AND LS spinal stenosis with chronic LBP. Walks independently with rolling walker. Neuro consult called for recurrent confusion in the evening hours. CT of head (03/17/19) reviewed: Mild diffuse atrophy, microvascular changes. Calcified intracranial arteries. EXAM: Obese. Neck supple. No bruits. S/P L TKR NEURO: Awake, alert- remembers me. Ox 3 but poor reversals and recalls only 1 of 3 objects at 3 mins. +Glabella. Withdrawn/depressed Speech fluent CN II-XII: normal , Motor: No drift or tremor. Normal grasps and ankle dorsiflexion. Absent KJ's and AJ's. Plantars silent. Coord: No FTN dystaxia Sensory: Reduced vibration to the knees Gait: Deferred IMP: 1. Mild bilateral cerebral dysfunction (OMS) 2. Worsened by Toxic-Metabolic Encephalopathy with probable contributions from Amiodarone, morphine, ICU psychosis 3. Depression 4. Diabetic Peripheral Neuropathy 5. LS spinal stenosis. SUGGEST: Check TSH, T4, B12, RPR, Avoid narcotics Keep on evening lights and orient with television/radio. Quetiapine 12.5 mg PO PRN in the evening Thank you very much, Chico Palmer MD
--- NOTE | 2019-03-19 14:51 | EKG ---
Test Reason : Blood Pressure : / mmHG Vent. Rate : 077 BPM Atrial Rate : 077 BPM P-R Int : 218 ms QRS Dur : 110 ms QT Int : 432 ms P-R-T Axes : 032 -26 003 degrees QTc Int : 488 ms SINUS RHYTHM WITH 1ST DEGREE A-V BLOCK WITH FREQUENT PREMATURE VENTRICULAR COMPLEXES INCOMPLETE LEFT BUNDLE BRANCH BLOCK PROLONGED QT ABNORMAL ECG WHEN COMPARED WITH ECG OF 18-MAR-2019 12:03, PREMATURE VENTRICULAR COMPLEXES ARE NOW PRESENT Confirmed by MD SHERRIE, LESLIE ([id number]) on 03/19/2019 2:51:15 PM Referred By: Rodney MCNALLY Confirmed By:LESLIE BALDERAS MD
[2019-03-19] MEDS: ALBUTEROL SO4 0.083% IH SOL 2.5 MG/3 ML VIAL.NEB. NEB PRN (20:34)
[2019-03-19] MEDS: MELATONIN 5 MG TABLETS PO PRN (21:17)
[2019-03-20] MEDS ORDERED: hydrALAZINE HCL 20 MG/ML VIAL IVPUSH ONE ×2 (04:14→08:30)
[2019-03-20] MEDS: INSULIN SLIDING SCALE (NOVOLOG) 1 VIAL SQ SCH (07:00)
[2019-03-20 07:35] LABS: BASO % 0.2 % (0-2.0); EOS % 0.1 % (0-4.5); HEMOGLOBIN 8.8 GM/dL (11.7-16.9); LYMPH % 8.2 % (8-40); MCH 30.8 pg (25.7-33.7); MCHC 33.9 g/dl (32.0-35.9); MEAN CELL VOLUME 90.8 fl (80-96); MEAN PLT VOLUME 7.5 fl (7.5-11.1); MONO % 4.7 % (3.8-10.2); NEUT % 86.8 % (42.8-82.8); PLATELET COUNT 156 K/MM3 (134-434); RBC 2.86 M/mm3 (4.00-5.60); RDW 15.5 % (11.9-15.9); WHITE BLOOD COUNT 10.3 K/mm3 (4.0-10.0)
[2019-03-20 08:12] LABS: BILIRUBIN,TOTAL 0.7 mg/dL (0.2-1); BLOOD UREA NITROGEN 69.7 mg/dL (7-18); CALCIUM 8.5 mg/dL (8.5-10.1); CREATININE 2.1 mg/dL (0.55-1.3); POTASSIUM 4.3 mmol/L (3.5-5.1); TOT PROT 6.2 g/dl (6.4-8.2)
--- NOTE | 2019-03-20 08:52 | PN ---
Progress Note, Physician Chief Complaint: TELE: NSR and rare PVCs No further VT. No further LIGIA Being transferred to [place]. History of Present Illness: BP was mildly elevated- ordered for dose of hydralazine by ICU team. - Current Medication List Current Medications: Active Medications Acetaminophen (Ofirmev Injection -) 1,000 mg IVPB Q6H PRN PRN Reason: PAIN LEVEL 4 - 6 Last Admin: 03/18/19 23:46 Dose: 1,000 mg Albuterol Sulfate (Ventolin 0.083% Nebulizer Soln -) 1 amp NEB Q6H PRN PRN Reason: SHORT OF BREATH/WHEEZING Last Admin: 03/19/19 20:34 Dose: 1 amp Carvedilol (Coreg -) 3.125 mg PO BID [facility] Last Admin: 03/19/19 21:17 Dose: 3.125 mg Amiodarone HCl/Dextrose (Nexterone 360 Mg/200 Ml Bag) 360 mg in 200 mls @ 16.667 mls/hr IVPB ASDIR [facility]; Protocol Last Admin: 03/19/19 08:08 Dose: 16.667 mls/hr Insulin Aspart (Novolog Vial Sliding Scale -) 1 vial SQ ACHS [facility]; Protocol Last Admin: 03/20/19 07:00 Dose: Not Given Melatonin (Melatonin) 5 mg PO HS PRN PRN Reason: INSOMNIA Last Admin: 03/19/19 21:17 Dose: 5 mg Morphine Sulfate (Morphine Sulfate) 2 mg IVPUSH Q4H PRN PRN Reason: PAIN LEVEL 7 - 10 Last Admin: 03/19/19 00:33 Dose: 2 mg Ondansetron HCl (Zofran Injection) 4 mg IVPUSH Q6H PRN PRN Reason: NAUSEA AND/OR VOMITING Tamsulosin HCl (Flomax -) 0.8 mg PO DAILY@0830 [facility] Last Admin: 03/19/19 09:11 Dose: 0.8 mg - Objective Vital Signs: Vital Signs Temperature 98.3 F 03/19/19 18:00 Pulse Rate 72 03/20/19 00:00 Respiratory Rate 17 03/20/19 00:00 Blood Pressure 172/74 H 03/20/19 00:00 O2 Sat by Pulse Oximetry (%) 98 03/19/19 21:00 Constitutional: Yes: No Distress Cardiovascular: Yes: Regular Rate and Rhythm Respiratory: Yes: Other (decreased breath sounds at bases b/l) Gastrointestinal: Yes: Soft, Abdomen, Obese (NT) Edema: No Neurological: Yes: Alert, Oriented Labs: CBC, BMP 03/20/19 06:45 03/20/19 06:00 INR, PTT INR 1.13 (0.83-1.09) H 03/16/19 19:10 - ....Imaging EKG: Image Reviewed Assessment/Plan IMP/PLAN: Renal mass ablation c/b retroperitoneal bleed: -treatment per IR, critical care, follow H/H -holding NOAC and not on anti-PLT meds -transfuse prn H/H trend HOLDEN on CKD: -baseline renal fxn unknown -improving slowly -per crit care, renal. -suspect acute blood loss with ATN NICM w/ chronic syst CHF: -h/o primary prevn ICD, now with long runs of VT (K and Mg WNL)on 03/18 -slightly volume overloaded yesterday. IVF d/c'd, given Lasix with improvement in dyspnea -not on CORY/ARB per home med list provided by pt (presumably due to CKD) -Carvedilol resumed, Cont Amio gtts to prevent further episodes of sustained VT and LIGIA which may lead to hemodynamic compromise, d/w EP and strips reviewed w/ Dr. Thompson on 03/19 -Keep K+ 4; Mg2+ 2 - Transferring patient to CCU at [place] for EP evaluation and further management. Case d/w CCU attending at [facility] Dr. Bull Magdaleno. He has accepted pt for transfer h/o Afib with prior TIAs: episode of LIGIA yesterday, sx, requiring Amio bolus for termination. -in sinus here -CHADS VASC 7. no choice but to hold AC for now while at risk of life- threatening bleeding -Cont Coreg slurred speech, mild facial droop, vision changes: toxic metabolic encephalopathy as per Neuro -subtle sx's -not a candidate for AC, t-PA or likely invasive clot removal in any event -CT neg -Neuro eval planned PPM/ICD: -tele monitoring here
[2019-03-20] MEDS: TAMSULOSIN HCL 0.4 MG CAP PO SCH (08:56)
[2019-03-20 09:07] VITALS: BP 177/81; PULSE 84; TEMP 98.6
--- NOTE | 2019-03-20 12:54 | DS ---
Physical Exam: SUBJECTIVE: Patient is comfortable with no acute distress. c/o having mild left abdominal pain. OBJECTIVE: Vital Signs Period Temp Pulse Resp BP Sys/Valenzuela Pulse Ox Last 24 Hr 98.0 F-98.6 F 72-84 17-24 157-182/74-101 98-98 PHYSICAL EXAM GENERAL: The patient is awake, alert, and fully oriented, in no acute distress. EYES:PEERLA; EOMI; no scleral icterus NECK: no JVD; no lymphadenopathy LUNGS: slight coarse breath sounds and crackles at the L base HEART: Regular rate and rhythm, S1, S2 without murmur, rub or gallop. ABDOMEN: soft; suprapubic tenderness; nondistended +BS in all 4 quadrants. EXTREMITIES: 2+ pulses, warm, well-perfused, no edema. NEUROLOGICAL: Cranial nerves II through XII grossly intact. normal speech; no facial asymmetry; strength 5/5 Bl UE and LE sensation intact throughout PSYCH: Normal mood, normal affect. SKIN: Warm, dry, normal turgor, no rashes or lesions noted LABS Laboratory Results - last 24 hr 03/16/19 03/18/19 03/19/19 19:00 17:03 15:20 WBC RBC Hgb Hct MCV MCH MCHC RDW Plt Count MPV Absolute Neuts (auto) Neutrophils % Lymphocytes % Monocytes % Eosinophils % Basophils % Nucleated RBC % Sodium Potassium Chloride Carbon Dioxide Anion Gap BUN Creatinine Est GFR (CKD-EPI)AfAm Est GFR (CKD-EPI)NonAf POC Glucometer 195 Random Glucose Calcium Total Bilirubin AST ALT Alkaline Phosphatase Creatine Kinase 188 Creatine Kinase Index 4.7 CK-MB (CK-2) 9.0 H Troponin I 1.84 H* Total Protein Albumin Blood Type O POSITIVE Antibody Screen Negative Crossmatch See Detail 03/19/19 03/19/19 03/20/19 17:54 21:20 06:00 WBC RBC Hgb Hct MCV MCH MCHC RDW Plt Count MPV Absolute Neuts (auto) Neutrophils % Lymphocytes % Monocytes % Eosinophils % Basophils % Nucleated RBC % Sodium 139 Potassium 4.3 Chloride 104 Carbon Dioxide 26 Anion Gap 9 BUN 69.7 H Creatinine 2.1 H Est GFR (CKD-EPI)AfAm 34.64 Est GFR (CKD-EPI)NonAf 29.89 POC Glucometer 210 177 Random Glucose 239 H Calcium 8.5 Total Bilirubin 0.7 AST 26 ALT 18 Alkaline Phosphatase 84 Creatine Kinase 142 Creatine Kinase Index CK-MB (CK-2) Troponin I 1.19 H* Total Protein 6.2 L Albumin 3.0 L Blood Type Antibody Screen Crossmatch 03/20/19 03/20/19 06:45 06:56 WBC 10.3 H RBC 2.86 L Hgb 8.8 L Hct 26.0 L MCV 90.8 MCH 30.8 MCHC 33.9 RDW 15.5 Plt Count 156 MPV 7.5 Absolute Neuts (auto) 8.9 H Neutrophils % 86.8 H Lymphocytes % 8.2 D Monocytes % 4.7 Eosinophils % 0.1 Basophils % 0.2 Nucleated RBC % 0 Sodium Potassium Chloride Carbon Dioxide Anion Gap BUN Creatinine Est GFR (CKD-EPI)AfAm Est GFR (CKD-EPI)NonAf POC Glucometer 219 Random Glucose Calcium Total Bilirubin AST ALT Alkaline Phosphatase Creatine Kinase Creatine Kinase Index CK-MB (CK-2) Troponin I Total Protein Albumin Blood Type Antibody Screen Crossmatch Imaging: CT abdomen and pelvis without contrast: Large solid left lower pole renal mass strongly suspecoius for a renal cell carcinoma. right renal cyst, no evidence of metastatic disease or acute pathology within the abdomen or pelvis. HOSPITAL COURSE: Date of Admission:03/16/19 Patient is a 73yo male with PMHx of CAD, prostate Ca, b/l kidney mass, HTN, and DM, s/p cryoablation and renal biopsy of L kidney mass, suspicious of tumor (RCC). He was admitted to the ICU postoperatively for monitoring of a post operative Retropereatineal Bleed. During his hospitalization the patient's hemodynamic status was tenuous. He was transfused 2 units prbc and one unit of FFP due to low BPs in the setting of active bleeds. Patient also had NICM w/ chronic syst CHF:with hx of ICD/PPM, having runs of VTAc although his mag and potassium were within nl. The patient was continued on lasix prn and continue coreg. As per cardio Amio gtts were added to prevent further episodes of sustained VT and LIGIA which may lead to hemodynamic compromise. discussed with EP and strips were reviewed w/ Dr. Thompson. Patient continued to have long runs of VT and was therefore transferred to CCU at tertiary care center for EP evaluation and further management.Accepting MD at [facility] Dr. Bull Magdaleno. Date of Discharge: 03/20/19 Minutes to complete discharge: 40 Discharge Summary Reason For Visit: RENAL MASS Condition: Stable - Instructions Diet, Activity, Other Instructions: Severe phimosis. Will require circumcision when medically cleared. Please Follow up with Dr Mott- [phone], [address]. Referrals: Feli Mott MD [Staff Physician] - Disposition: TRANSFER ACUTE CARE/OTHER HOSP - Home Medications Comprehensive Discharge Medication List: Ambulatory Orders Acetaminophen 325 mg PO PRN PRN 03/15/19 Allopurinol [Zyloprim -] 100 mg PO DAILY 03/15/19 Carvedilol 3.125 mg PO BID 03/15/19 Clotrimazole [Lotrimin 1% Cream -] 1 applic TP DAILY 03/15/19 Furosemide 40 mg PO BID 03/15/19 Gabapentin 600 mg PO TID 03/15/19 Glimepiride 4 mg PO DAILY 03/15/19 Insulin (Novolog) [Novolog -] 11 units PO BID 03/15/19 Insulin Detemir [Levemir Flextouch] 44 unit SQ DAILY 03/15/19 Linagliptin [Tradjenta] 5 mg PO DAILY 03/15/19 Lipase/Protease/Amylase [Melida Em 3,000 Units Capsule] 1 each PO TID 03/15/19 Loperamide HCl [Loperamide] 2 mg PO BID 03/15/19 Nystatin [Nyamyc] 100 gm TP DAILY PRN 03/15/19 Rivaroxaban [Xarelto -] 20 mg PO DAILY 03/15/19 Sertraline HCl 150 mg PO DAILY 03/15/19 Simvastatin 5 mg PO DAILY 03/15/19 Tamsulosin HCl [Flomax] 0.8 mg PO DAILY 03/15/19 This patient is new to me today: No Emergency Visit: No Critical Care patient: Yes Total Critical Care Time (in minutes): 40 Critical Care Statement: The care of this patient involved high complexity decision making to prevent further life threatening deterioration of the patient 's condition and/or to evaluate & treat vital organ system(s) failure or risk of failure. - Discharge Referral Referred to [facility] No ATTENDING PHYSICIAN STATEMENT I saw and evaluated the patient. I reviewed the resident's note and discussed the case with the resident. I agree with the resident's findings and plan as documented. SUBJECTIVE: OBJECTIVE: ASSESSMENT AND PLAN:
--- NOTE | 2019-03-20 17:56 | PN ---
Teaching Attending Note Name of Resident: Rose George ATTENDING PHYSICIAN STATEMENT I reviewed the resident's note and discussed the case with the resident. I agree with the resident's findings and plan as documented. Patient is transferred to [facility] by who arranged the transfer since patient was having VT. Vital Signs Temperature 98.6 F 03/20/19 08:00 Pulse Rate 84 03/20/19 08:00 Respiratory Rate 24 H 03/20/19 08:00 Blood Pressure 177/81 H 03/20/19 08:00 O2 Sat by Pulse Oximetry (%) 98 03/20/19 08:30 CBCD WBC 10.3 K/mm3 (4.0-10.0) H 03/20/19 06:45 RBC 2.86 M/mm3 (4.00-5.60) L 03/20/19 06:45 Hgb 8.8 GM/dL (11.7-16.9) L 03/20/19 06:45 Hct 26.0 % (35.4-49) L 03/20/19 06:45 MCV 90.8 fl (80-96) 03/20/19 06:45 MCHC 33.9 g/dl (32.0-35.9) 03/20/19 06:45 RDW 15.5 % (11.9-15.9) 03/20/19 06:45 Plt Count 156 K/MM3 (134-434) 03/20/19 06:45 MPV 7.5 fl (7.5-11.1) 03/20/19 06:45 CMP Sodium 139 mmol/L (136-145) 03/20/19 06:00 Potassium 4.3 mmol/L (3.5-5.1) 03/20/19 06:00 Chloride 104 mmol/L (98-107) 03/20/19 06:00 Carbon Dioxide 26 mmol/L (21-32) 03/20/19 06:00 Anion Gap 9 MMOL/L (8-16) 03/20/19 06:00 BUN 69.7 mg/dL (7-18) H 03/20/19 06:00 Creatinine 2.1 mg/dL (0.55-1.3) H 03/20/19 06:00 Random Glucose 239 mg/dL (74-106) H 03/20/19 06:00 Calcium 8.5 mg/dL (8.5-10.1) 03/20/19 06:00 Total Bilirubin 0.7 mg/dL (0.2-1) 03/20/19 06:00 AST 26 U/L (15-37) 03/20/19 06:00 ALT 18 U/L (13-61) 03/20/19 06:00 Alkaline Phosphatase 84 U/L (45-117) 03/20/19 06:00 Total Protein 6.2 g/dl (6.4-8.2) L 03/20/19 06:00 Albumin 3.0 g/dl (3.4-5.0) L 03/20/19 06:00 CARDIAC ENZYMES Creatine Kinase 142 U/L (26-308) 03/20/19 06:00 Troponin I 1.19 ng/ml (0.00-0.05) H* 03/20/19 06:00 Home Medications Medication Instructions Recorded Acetaminophen 325 mg PO PRN PRN 03/15/19 Allopurinol [Zyloprim -] 100 mg PO DAILY 03/15/19 Carvedilol 3.125 mg PO BID 03/15/19 Clotrimazole [Lotrimin 1% Cream -] 1 applic TP DAILY 03/15/19 Furosemide 40 mg PO BID 03/15/19 Gabapentin 600 mg PO TID 03/15/19 Glimepiride 4 mg PO DAILY 03/15/19 Insulin (Novolog) [Novolog -] 11 units PO BID 03/15/19 Insulin Detemir [Levemir Flextouch] 44 unit SQ DAILY 03/15/19 Linagliptin [Tradjenta] 5 mg PO DAILY 03/15/19 Lipase/Protease/Amylase [Creon Dr 1 each PO TID 03/15/19 3,000 Units Capsule] Loperamide HCl [Loperamide] 2 mg PO BID 03/15/19 Nystatin [Nyamyc] 100 gm TP DAILY PRN 03/15/19 Rivaroxaban [Xarelto -] 20 mg PO DAILY 03/15/19 Sertraline HCl 150 mg PO DAILY 03/15/19 Simvastatin 5 mg PO DAILY 03/15/19 Tamsulosin HCl [Flomax] 0.8 mg PO DAILY 03/15/19 CT abdomen and pelvis without contrast: Large solid left lower pole renal mass strongly suspecoius for a renal cell carcinoma. right renal cyst, no evidence of metastatic disease or acute pathology within the abdomen or pelvis. ASSESSMENT AND PLAN: Patient is a 73yo male with PMHx of CAD, prostate Ca, b/l kidney mass, HTN, and DM, s/p cryoablation and renal biopsy of L kidney mass, suspicious of tumor (RCC) # POD#3 , Retropereatineal Bleed s/p cryoablation of left kidney due to a kidney mass. s/p transfusion of 2 units prbc and one unit of FFP, transfuse if hgb drops below 8.0. # acute blood loss with hemoglobin drop s/p 2 units of PRBC and one unit of FFP # NICM w/ chronic syst CHF:with hx of ICD/PPM, having runs of VTAc , mag and potassium within nl, not on CORY/ARB per home med list provided by pt (presumably due to CKD), lasix prn , continue coreg. As per cardio would like to add Amio gtts to prevent further episodes of sustained VT and LIGIA which may lead to hemodynamic compromise. discussed with EP and strips were reviewed w/ Dr. Thompson. Keep K+ 4; Mg2+ 2 -Now with long runs VT. , patient is being transferred to CCU at tertiary care center for EP evaluation and further management.Accepting MD at [facility] Dr. Bull Magdaleno. #Afib with rate controlled with CHADS VASC 7. cannot AC since patient has life- threatening bleeding, Cont Coreg. # ARF: 2.8 cr-->2.4 today and urinating well , nephro consult appreciated. # Hx of PPM and defibrilator . # Hx of CAD/Prostate Ca # Hx of T2DM on ss with coverage # Hx of HtN: continue to monitor DVT Px: SCds Tx the patient to CCU at [facility] once bed opens up.
--- NOTE | 2019-03-21 14:37 | PATH ---
Surgical Pathology Report Patient Name: NEGRO [facility]N [facility]. Rec. 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 Specimen(s) Received LEFT RENAL BIOPSY Clinical History 73 year old with large 6.2 x 5.0 x 4.8 cm left renal mass, CT guided left renal mass core biopsy and cryoablation, rule out RCC Final Diagnosis LEFT RENAL BIOPSY: MINUTE EPITHELIUM IN A BACKGROUND OF NECROSIS. SEE COMMENT. Comment: Minute aggregates (< 1 mm in greatest dimension) epithelium in a background of necrosis and blood. Immunohistochemical stain AE1/AE3 performed and interpreted at [facility] confirmed the epithelial cells. A diagnosis cannot be made in this scant material. Suggest clinical correlation with radiographic findings. Electronically Signed Maddie Ma M.D. Gross Description Received in formalin, labeled "left renal biopsy" are multiple bloom, cylindrical soft tissue measuring 0.2 to 0.3 cm. in greatest length and less than 0.1cm in diameter. The specimen is submitted in toto in one cassette. MECHE/03/17/2019 francia/03/17/2019
== END 2019-03-20 08:45 | disposition short-term general hospital (02) | DRG 981 ==
LOC: JRADIR 07:33 → JSAMEDAYSX 12:47 → JICU 19:48
PROVIDERS: ADMIT Urology; ATTEND Internal Medicine
PROC: 0TB14ZX Excision of Left Kidney, Percutaneous Endoscopic Approach, Diagnostic (ICD-10-PCS; 2019-03-16)
PROC: 30233N1 Transfusion of Nonautologous Red Blood Cells into Peripheral Vein, Percutaneous Approach (ICD-10-PCS; 2019-03-16)
PROC: 0T5 Urinary System, Destruction (ICD-10-PCS; principal; 2019-03-16 10:00)
PROC: 30233L1 Transfusion of Nonautologous Fresh Plasma into Peripheral Vein, Percutaneous Approach (ICD-10-PCS; 2019-03-17)
PROC: 30233K1 Transfusion of Nonautologous Frozen Plasma into Peripheral Vein, Percutaneous Approach (ICD-10-PCS; 2019-03-17)
DX: N99.820 Postprocedural hemorrhage of a genitourinary system organ or structure following a genitourinary system procedure (principal); K66.1 Hemoperitoneum; G93.41 Metabolic encephalopathy; C64.9 Malignant neoplasm of unspecified kidney, except renal pelvis; N17.9 Acute kidney failure, unspecified; I50.22 Chronic systolic (congestive) heart failure; I48.92 Unspecified atrial flutter; I47.1 Supraventricular tachycardia; D62 Acute posthemorrhagic anemia; I13.0 Hypertensive heart and chronic kidney disease with heart failure and stage 1 through stage 4 chronic kidney disease, or unspecified chronic kidney disease; I25.10 Atherosclerotic heart disease of native coronary artery without angina pectoris; C61 Malignant neoplasm of prostate; F32.9 Major depressive disorder, single episode, unspecified; E11.42 Type 2 diabetes mellitus with diabetic polyneuropathy; M48.07 Spinal stenosis, lumbosacral region; Y83.9 Surgical procedure, unspecified as the cause of abnormal reaction of the patient, or of later complication, without mention of misadventure at the time of the procedure; N18.9 Chronic kidney disease, unspecified; N47.1 Phimosis; I95.9 Hypotension, unspecified; E87.5 Hyperkalemia; E66.9 Obesity, unspecified; Z68.36 Body mass index [BMI] 36.0-36.9, adult; I48.91 Unspecified atrial fibrillation
CPT/HCPCS: 36415; 36430; 36511; 36600; 50200; 50593; 70450-TC; 71045-TC-FY; 76380-TC; 76775-TC; 76856-TC; 76942-TC; 80048; 80053; 82436; 82550; 82553; 82565; 82803; 82962; 83735; 84100; 84133; 84300; 84484; 85025; 85027; 85610; 86850; 86900; 86901; 86922; 88305-TC; 93005; 93010; 93306-TC; 94640; 94660; 94760; C2618; J0131; J7030; P9017; P9038; P9058